=== PATIENT | male | born 1945 | race Caucasian/White ===

== ENCOUNTER 2020-07-07 16:14 | Outpatient (REF) | payer MEDICARE, OTHER, SELFPAY ==
[2020-07-07 18:34] LABS: Estimated Average Glucose 171 mg/dL; Hemoglobin A1c % 7.6 %
[2020-07-07 18:46] LABS: Amphetamine Screen Urine Not Detected (Not Detect); Barbiturates, Urine Not Detected (Not Detect); Benzodiazepines Screen Urine Not Detected (Not Detect); Cannabinoid Screen Urine Not Detected (Not Detect); Opiate Screen Urine POSITIVE (Not Detect); Phencyclidine Screen Urine Not Detected (Not Detect)
[2020-07-07 18:48] LABS: Cocaine Screen Urine Not Detected (Not Detect)
[2020-07-07 18:49] LABS: Alanine Aminotransferase 29 U/L (0-40); Albumin Level 4.2 g/dL (3.5-5.0); Alkaline Phosphatase 79 U/L (39-117); Anion Gap 15 (12-20); Aspartate Amino Transferase 27 U/L (5-37); Bilirubin Total 0.3 mg/dL (0.0-1.0); Blood Urea Nitrogen 10 mg/dL (9-16); Calcium 8.7 mg/dL (8.4-10.2); Carbon Dioxide 36 mmol/L (22-29); Chloride 92 mmol/L (96-108); Cholesterol 197 mg/dL; Estimated Glomerular Filt Rate > 60; Glucose Random 122 mg/dL (60-115); HDL Cholesterol 36 mg/dL; LDL Cholesterol Calculated 115 mg/dl; Potassium 3.4 mmol/l (3.3-5.1); Sodium 140 mmol/L (135-145); Total Protein 7.2 g/dL (6.5-8.0); Triglycerides 231 mg/dL
== END 2020-07-07 16:15 | disposition home or self-care (01) ==
LOC: HO.LAB 16:14
PROVIDERS: PCP Family Medicine; Visit Provider Family Medicine
DX: E11.9 Type 2 diabetes mellitus without complications (principal); G89.4 Chronic pain syndrome; E78.5 Hyperlipidemia, unspecified
CPT/HCPCS: 80053; 80061; 80307; 83036

== ENCOUNTER 2020-10-16 07:28 | Inpatient (IN) | payer OTHER, MEDICARE, SELFPAY ==
[2020-10-16] VITALS (10 sets, daily range): BP systolic 104–170; BP diastolic 66–95; PULSE 86–121; RESP 17–24; TEMP 36.8–36.9; O2SAT 93–96; BMI 37.0
--- NOTE | ~2020-10-16 | XR_ITS ---
EXAMINATION: XR CHEST CLINICAL INFORMATION: Hypokalemia COMPARISON: None TECHNIQUE: Frontal view of the chest was obtained. FINDINGS: Cardiac leads overlie the chest. The lungs are well expanded. No consolidation, edema, or effusion. No pneumothorax. The cardiomediastinal silhouette is within normal limits. XR/XR chest 1V IMPRESSION: No acute pulmonary finding.
--- NOTE | 2020-10-16 07:44 | ED_ITS ---
HPI - General Adult General Chief complaint: General Medical <Patrick Miller MD - Last Filed: 10/16/20 12:49> Stated complaint: ANX, S/P TAKING NARCAN D/T POSS TOOK TOO MANY OXY <Patrick Miller MD - Last Filed: 10/16/20 12:49> Time Seen by Provider: 10/16/20 07:43 <Patrick Miller MD - Last Filed: 10/16/20 12:49> Source: EMS <Patrick Miller MD - Last Filed: 10/16/20 12:49> Mode of arrival: EMS <Patrick Miller MD - Last Filed: 10/16/20 12:49> Limitations: no limitations <Patrick Miller MD - Last Filed: 10/16/20 12:49> History of Present Illness HPI narrative: 75-year-old male with chronic pain syndrome, patient use oxycodone 40 mg twice daily, patient took 80 mg of oxycodone this morning did not feel well patient administered himself Narcan nasally then patient started feel weird, patient is complaining of not feeling well no no specific symptoms at this poi nt, patient repeatedly say give me something to calm me down and I will get my head straight please help me, please help me,... , Patient overall is vague historian. <Patrick Miller MD - Last Filed: 10/16/20 12:49> Related Data Home medications: Home Medications Medication Instructions Recorded Confirmed apixaban [Eliquis] 5 mg PO BID 10/16/20 10/16/20 furosemide 80 mg PO BID 10/16/20 10/16/20 metolazone 5 mg PO SA@1000 10/16/20 10/16/20 oxycodone 15 mg PO Q6H PRN 10/16/20 10/16/20 oxycodone [OxyContin] 80 mg PO Q12H 10/16/20 10/16/20 potassium chloride 10 meq PO BID 10/16/20 10/16/20 tamsulosin 0.4 mg PO DAILY 10/16/20 10/16/20 <Patrick Miller MD - Last Filed: 10/16/20 12:49> Allergies/adverse reactions: Allergies Allergy/AdvReac Type Severity Reaction Status Date / Time No Known Allergies Allergy Verified 10/16/20 07:43 <Patrick Miller MD - Last Filed: 10/16/20 12:49> Review of Systems Review of Systems: All other systems are reviewed and are negative Constitutional: Reports as per HPI and Reports no additional constitutional complaints Eyes: Reports as per HPI and Reports no additional eye complaints Reports system reviewed and no additional complaints, except as documented Cardiovascular: Reports as per HPI and Reports no additional cardiovascular complaints Respiratory: Reports as per HPI and Reports no additional respiratory complaints Gastrointestinal: Reports as per HPI and Reports no additional gastrointestinal complaints Genitourinary: Reports no additional female genitourinary complaints Musculoskeletal: Reports no additional musculoskeletal complaints Skin/Breast: Reports system reviewed and no additional complaints, except as docu Psychiatric: Reports no additional psychiatric complaints Endocrine: Reports no additional endocrine complaints Hematologic/Lymphatic: Reports no additional hematologic/lymphatic complaints Allergic/Immunologic: Reports no additional allergic/immunologic complaints Reports system reviewed and no additional complaints, except as documented and Reports Abnormal speech present <Patrick Miller MD - Last Filed: 10/16/20 12:49> [facility] Past Medical History Medical History: Medical History Chronic back pain <Patrick Miller MD - Last Filed: 10/16/20 12:49> Social History Social History: Social History Alcohol intake: unknown Smoking Status: Unknown if ever smoked Use of substances other than those prescribed or required for medical reasons: Unknown Advance Directives: No Advance Directives Information Provided: No <Patrick Miller MD - Last Filed: 10/16/20 12:49> Physical Exam Vital Signs: Vital Signs: Last Vital Signs Temp 98.3 F 10/16/20 20:51 Pulse 98 10/17/20 00:38 Resp 15 10/17/20 00:38 BP 147/80 H 10/17/20 00:38 Pulse Ox 92 10/17/20 00:38 Body Mass Index 37.0 Vital signs have been reviewed as normal and appeared to be correct. Blood pressure in the high round. Heart rate in the high range. Respiration rate normal. Temperature normal. Oxygen saturation normal. <Patrick Miller MD - Last Filed: 10/16/20 12:49> Vital Signs: Last Vital Signs Temp 98.3 F 10/16/20 20:51 Pulse 98 10/17/20 00:38 Resp 15 10/17/20 00:38 BP 147/80 H 10/17/20 00:38 Pulse Ox 92 10/17/20 00:38 Body Mass Index 37.0 <Emilie Ramos MD - Last Filed: 10/17/20 06:13> Appearance: Alert. Oriented X3. No acute distress. Head: Normal external exam. Normocephalic. Atraumatic. No Christopher signs noted. No raccoon eyes noted Eyes: PERRLA. EOMI. Conjunctiva and sclera normal. Eyelids normal. ENT: EAC normal. TM's Normal. Pharynx normal. Uvula midline. Moist mucous membranes. No trismus noted. No drooling noted. No muffled voice noted. Neck: Normal inspection. Neck supple. FROM. No adenopathy. Thyroid Normal. No meningeal signs. No neck mass noted. CVS: Normal heart rate and rhythm. Heart sound normal. No murmurs noted. Pulses normal throughout. Respiratory: No respiratory distress. Painless inspiration. Breath sounds normal. No wheezes/rales/rhonchi noted. Chest nontender. No accessory muscle usage noted or decreased air movement noted. Abdomen: Soft and nontender. Bowel sounds normal in all 4 quadrants. No distention noted. No organomegaly noted. No visible injury noted. Back: No CVA tenderness. Full range of motion noted. Skin: Skin warm and dry. Normal skin color. Normal skin turgor. No rashes/lesions/lacerations noted. Extremities: No lower extremity edema. Extremities exhibit normal range of motion. Extremities nontender. Neuro: Oriented X 3. No motor deficit. No sensory deficit. Reflexes normal. <Patrick Miller MD - Last Filed: 10/16/20 12:49> Course Course Course Narrative: Assessment and plan. Patient initially came in after taking his normal oxycodone than give himself a Narcan patient did not feel good, due to patient's vague historian labs were randomly sent and showed hypo natremia and hypokalemia further history from the patient patient is taking total of 120 mg of Lasix daily which could contribute to patient's finding today. Will admit the patient for electrolyte management. Patient is orthostatic will volume repletion. The case discussed with Dr. Stevens from Nephrology who recommended to do a water restriction to 1.5 L a day and a serial sodium check. <Patrick Miller MD - Last Filed: 10/16/20 12:49> Medical Decision Making Lab Data Lab results reviewed: Yes I reviewed the patient's lab results. <Patrick Miller MD - Last Filed: 10/16/20 12:49> Result diagrams: : 10/16/20 08:41 10/16/20 22:03 <Patrick Miller MD - Last Filed: 10/16/20 12:49> Labs: Lab Results 10/16/20 10/16/20 10/16/20 Range/Units 08:41 08:41 08:41 WBC 12.4 H (4.8-10.8) X10*3/uL RBC 4.44 L (4.60-5.80) X10*6/uL Hgb 12.3 L (14.0-18.0) g/dl Hct 35.2 L (42-52) % MCV 79.3 L (80-98) fL MCH 27.7 (27.0-33.0) pg MCHC 34.9 (31.0-36.0) g/dl RDW 14.3 (11.0-16.0) % Plt Count 239 (160-400) X10*3/uL MPV 9.8 (9.4-12.4) fL Immature Gran % (Auto) 0.7 H (0.0-0.4) % Neut % (Auto) 87.1 H (45-73) % Lymph % (Auto) 4.2 L (20-40) % [place] % (Auto) 7.7 (2-11) % Eos % (Auto) 0.1 (0-4) % Baso % (Auto) 0.2 (0-2) % Lymph # (Auto) 0.5 L (1.2-4.9) X10*3/uL [place] # (Auto) 1.0 (0.1-1.2) X10*3/uL Eos # (Auto) 0.0 (0.0-0.4) X10*3/uL Baso # (Auto) 0.0 (0.0-0.2) X10*3/uL Abs Immat Gran (auto) 0.09 H (0.00-0.03) X10*3/uL Absolute Neuts (auto) 10.8 H (2.0-8.3) X10*3/uL Absolute Nucleated RBC 0.000 (0.0-0.012) X10*3/uL Nucleated RBC % (auto) 0.0 (0.0-0.2) /100WBC Smear Tech's Comments VERIFIED Sodium 118 L* (135-145) mmol/L Potassium 2.3 L* (3.3-5.1) mmol/L Chloride 62 L D (96-108) mmol/L Carbon Dioxide 37 H (22-29) mmol/L Anion Gap 21 H (12-20) BUN 13 (9-16) mg/dL Creatinine 0.90 (0.5-1.4) mg/dL Estim Creat Clear Calc 99.4 Estimated GFR > 60 Random Glucose 252 H D (60-115) mg/dL Calcium 7.8 L D (8.4-10.2) mg/dL Phosphorus 1.9 L (2.7-4.5) mg/dL Magnesium 1.5 L (1.6-2.6) mg/dL Total Bilirubin 0.7 (0.0-1.0) mg/dL Direct Bilirubin 0.3 (0.0-0.5) mg/dL AST 44 H D (5-37) U/L ALT 40 (0-40) U/L Alkaline Phosphatase 106 D (39-117) U/L Troponin I High Sens 9.4 (<3.5-35.0) ng/L Total Protein 7.1 (6.5-8.0) g/dL Albumin 4.1 (3.5-5.0) g/dL Lipase 426 H (8-78) U/L Urine Color Urine Appearance Urine pH (5.0-8.0) Ur Specific [place] (1.005-1.025) Urine Protein (NEG-TRACE) MG/DL Urine Glucose (UA) (NEG) MG/DL Urine Ketones (NEG) MG/DL Urine Blood (NEG) Urine Nitrite (NEG) Ur Leukocyte Esterase (NEG) Urine RBC (0) /HPF Urine WBC (0-4) /HPF Ur Squamous Epith Cells /LPF Urine Bacteria /LPF Urine Osmolality (373-1093) mosm/kg Ur Random Sodium mmol/L Ur Random Potassium mmol/L Urine Opiates Screen (Not Detect) Ur Barbiturates Screen (Not Detect) Ur Phencyclidine Scrn (Not Detect) Ur Amphetamines Screen (Not Detect) U Benzodiazepines Scrn (Not Detect) Urine Cocaine Screen (Not Detect) U Marijuana (THC) Screen (Not Detect) COVID-19 (CODY) (Negative) COVID-19 Clin Com 10/16/20 10/16/20 10/16/20 Range/Units 11:39 11:59 12:56 WBC (4.8-10.8) X10*3/uL RBC (4.60-5.80) X10*6/uL Hgb (14.0-18.0) g/dl Hct (42-52) % MCV (80-98) fL MCH (27.0-33.0) pg MCHC (31.0-36.0) g/dl RDW (11.0-16.0) % Plt Count (160-400) X10*3/uL MPV (9.4-12.4) fL Immature Gran % (Auto) (0.0-0.4) % Neut % (Auto) (45-73) % Lymph % (Auto) (20-40) % [place] % (Auto) (2-11) % Eos % (Auto) (0-4) % Baso % (Auto) (0-2) % Lymph # (Auto) (1.2-4.9) X10*3/uL [place] # (Auto) (0.1-1.2) X10*3/uL Eos # (Auto) (0.0-0.4) X10*3/uL Baso # (Auto) (0.0-0.2) X10*3/uL Abs Immat Gran (auto) (0.00-0.03) X10*3/uL Absolute Neuts (auto) (2.0-8.3) X10*3/uL Absolute Nucleated RBC (0.0-0.012) X10*3/uL Nucleated RBC % (auto) (0.0-0.2) /100WBC Smear Tech's Comments Sodium 120 L* (135-145) mmol/L Potassium 2.4 L* (3.3-5.1) mmol/L Chloride 65 L (96-108) mmol/L Carbon Dioxide 35 H (22-29) mmol/L Anion Gap 22 H (12-20) BUN 12 (9-16) mg/dL Creatinine 0.84 (0.5-1.4) mg/dL Estim Creat Clear Calc 106.5 Estimated GFR > 60 Random Glucose 230 H (60-115) mg/dL Calcium 7.8 L (8.4-10.2) mg/dL Phosphorus (2.7-4.5) mg/dL Magnesium (1.6-2.6) mg/dL Total Bilirubin (0.0-1.0) mg/dL Direct Bilirubin (0.0-0.5) mg/dL AST (5-37) U/L ALT (0-40) U/L Alkaline Phosphatase (39-117) U/L Troponin I High Sens (<3.5-35.0) ng/L Total Protein (6.5-8.0) g/dL Albumin (3.5-5.0) g/dL Lipase (8-78) U/L Urine Color YELLOW Urine Appearance CLEAR Urine pH 6.5 (5.0-8.0) Ur Specific [place] 1.015 (1.005-1.025) Urine Protein NEG (NEG-TRACE) MG/DL Urine Glucose (UA) 100 H (NEG) MG/DL Urine Ketones NEG (NEG) MG/DL Urine Blood TRACE (NEG) Urine Nitrite NEG (NEG) Ur Leukocyte Esterase NEG (NEG) Urine RBC 0-2 (0) /HPF Urine WBC 0-2 (0-4) /HPF Ur Squamous Epith Cells TRACE /LPF Urine Bacteria NONE /LPF Urine Osmolality (373-1093) mosm/kg Ur Random Sodium mmol/L Ur Random Potassium mmol/L Urine Opiates Screen (Not Detect) Ur Barbiturates Screen (Not Detect) Ur Phencyclidine Scrn (Not Detect) Ur Amphetamines Screen (Not Detect) U Benzodiazepines Scrn (Not Detect) Urine Cocaine Screen (Not Detect) U Marijuana (THC) Screen (Not Detect) COVID-19 (CODY) Negative (Negative) COVID-19 Clin Com See Note 10/16/20 10/16/20 10/16/20 Range/Units 12:56 12:56 12:56 WBC (4.8-10.8) X10*3/uL RBC (4.60-5.80) X10*6/uL Hgb (14.0-18.0) g/dl Hct (42-52) % MCV (80-98) fL MCH (27.0-33.0) pg MCHC (31.0-36.0) g/dl RDW (11.0-16.0) % Plt Count (160-400) X10*3/uL MPV (9.4-12.4) fL Immature Gran % (Auto) (0.0-0.4) % Neut % (Auto) (45-73) % Lymph % (Auto) (20-40) % [place] % (Auto) (2-11) % Eos % (Auto) (0-4) % Baso % (Auto) (0-2) % Lymph # (Auto) (1.2-4.9) X10*3/uL [place] # (Auto) (0.1-1.2) X10*3/uL Eos # (Auto) (0.0-0.4) X10*3/uL Baso # (Auto) (0.0-0.2) X10*3/uL Abs Immat Gran (auto) (0.00-0.03) X10*3/uL Absolute Neuts (auto) (2.0-8.3) X10*3/uL Absolute Nucleated RBC (0.0-0.012) X10*3/uL Nucleated RBC % (auto) (0.0-0.2) /100WBC Smear Tech's Comments Sodium (135-145) mmol/L Potassium (3.3-5.1) mmol/L Chloride (96-108) mmol/L Carbon Dioxide (22-29) mmol/L Anion Gap (12-20) BUN (9-16) mg/dL Creatinine (0.5-1.4) mg/dL Estim Creat Clear Calc Estimated GFR Random Glucose (60-115) mg/dL Calcium (8.4-10.2) mg/dL Phosphorus (2.7-4.5) mg/dL Magnesium (1.6-2.6) mg/dL Total Bilirubin (0.0-1.0) mg/dL Direct Bilirubin (0.0-0.5) mg/dL AST (5-37) U/L ALT (0-40) U/L Alkaline Phosphatase (39-117) U/L Troponin I High Sens (<3.5-35.0) ng/L Total Protein (6.5-8.0) g/dL Albumin (3.5-5.0) g/dL Lipase (8-78) U/L Urine Color Urine Appearance Urine pH (5.0-8.0) Ur Specific [place] (1.005-1.025) Urine Protein (NEG-TRACE) MG/DL Urine Glucose (UA) (NEG) MG/DL Urine Ketones (NEG) MG/DL Urine Blood (NEG) Urine Nitrite (NEG) Ur Leukocyte Esterase (NEG) Urine RBC (0) /HPF Urine WBC (0-4) /HPF Ur Squamous Epith Cells /LPF Urine Bacteria /LPF Urine Osmolality 434 (373-1093) mosm/kg Ur Random Sodium 29.0 mmol/L Ur Random Potassium 49.1 mmol/L Urine Opiates Screen POSITIVE H (Not Detect) Ur Barbiturates Screen Not Detected (Not Detect) Ur Phencyclidine Scrn Not Detected (Not Detect) Ur Amphetamines Screen Not Detected (Not Detect) U Benzodiazepines Scrn Not Detected (Not Detect) Urine Cocaine Screen Not Detected (Not Detect) U Marijuana (THC) Screen Not Detected (Not Detect) COVID-19 (CODY) (Negative) COVID-19 Clin Com 10/16/20 Range/Units 12:56 WBC (4.8-10.8) X10*3/uL RBC (4.60-5.80) X10*6/uL Hgb (14.0-18.0) g/dl Hct (42-52) % MCV (80-98) fL MCH (27.0-33.0) pg MCHC (31.0-36.0) g/dl RDW (11.0-16.0) % Plt Count (160-400) X10*3/uL MPV (9.4-12.4) fL Immature Gran % (Auto) (0.0-0.4) % Neut % (Auto) (45-73) % Lymph % (Auto) (20-40) % [place] % (Auto) (2-11) % Eos % (Auto) (0-4) % Baso % (Auto) (0-2) % Lymph # (Auto) (1.2-4.9) X10*3/uL [place] # (Auto) (0.1-1.2) X10*3/uL Eos # (Auto) (0.0-0.4) X10*3/uL Baso # (Auto) (0.0-0.2) X10*3/uL Abs Immat Gran (auto) (0.00-0.03) X10*3/uL Absolute Neuts (auto) (2.0-8.3) X10*3/uL Absolute Nucleated RBC (0.0-0.012) X10*3/uL Nucleated RBC % (auto) (0.0-0.2) /100WBC Smear Tech's Comments Sodium (135-145) mmol/L Potassium (3.3-5.1) mmol/L Chloride (96-108) mmol/L Carbon Dioxide (22-29) mmol/L Anion Gap (12-20) BUN (9-16) mg/dL Creatinine (0.5-1.4) mg/dL Estim Creat Clear Calc Estimated GFR Random Glucose (60-115) mg/dL Calcium (8.4-10.2) mg/dL Phosphorus (2.7-4.5) mg/dL Magnesium (1.6-2.6) mg/dL Total Bilirubin (0.0-1.0) mg/dL Direct Bilirubin (0.0-0.5) mg/dL AST (5-37) U/L ALT (0-40) U/L Alkaline Phosphatase (39-117) U/L Troponin I High Sens (<3.5-35.0) ng/L Total Protein (6.5-8.0) g/dL Albumin (3.5-5.0) g/dL Lipase (8-78) U/L Urine Color Cancelled Urine Appearance Cancelled Urine pH Cancelled (5.0-8.0) Ur Specific [place] Cancelled (1.005-1.025) Urine Protein Cancelled (NEG-TRACE) MG/DL Urine Glucose (UA) Cancelled (NEG) MG/DL Urine Ketones Cancelled (NEG) MG/DL Urine Blood Cancelled (NEG) Urine Nitrite Cancelled (NEG) Ur Leukocyte Esterase Cancelled (NEG) Urine RBC (0) /HPF Urine WBC (0-4) /HPF Ur Squamous Epith Cells /LPF Urine Bacteria /LPF Urine Osmolality (373-1093) mosm/kg Ur Random Sodium mmol/L Ur Random Potassium mmol/L Urine Opiates Screen (Not Detect) Ur Barbiturates Screen (Not Detect) Ur Phencyclidine Scrn (Not Detect) Ur Amphetamines Screen (Not Detect) U Benzodiazepines Scrn (Not Detect) Urine Cocaine Screen (Not Detect) U Marijuana (THC) Screen (Not Detect) COVID-19 (CODY) (Negative) COVID-19 Clin Com <Patrick Miller MD - Last Filed: 10/16/20 12:49> Lab Results 10/16/20 10/16/20 10/16/20 Range/Units 08:41 08:41 08:41 WBC 12.4 H (4.8-10.8) X10*3/uL RBC 4.44 L (4.60-5.80) X10*6/uL Hgb 12.3 L (14.0-18.0) g/dl Hct 35.2 L (42-52) % MCV 79.3 L (80-98) fL MCH 27.7 (27.0-33.0) pg MCHC 34.9 (31.0-36.0) g/dl RDW 14.3 (11.0-16.0) % Plt Count 239 (160-400) X10*3/uL MPV 9.8 (9.4-12.4) fL Immature Gran % (Auto) 0.7 H (0.0-0.4) % Neut % (Auto) 87.1 H (45-73) % Lymph % (Auto) 4.2 L (20-40) % [place] % (Auto) 7.7 (2-11) % Eos % (Auto) 0.1 (0-4) % Baso % (Auto) 0.2 (0-2) % Lymph # (Auto) 0.5 L (1.2-4.9) X10*3/uL [place] # (Auto) 1.0 (0.1-1.2) X10*3/uL Eos # (Auto) 0.0 (0.0-0.4) X10*3/uL Baso # (Auto) 0.0 (0.0-0.2) X10*3/uL Abs Immat Gran (auto) 0.09 H (0.00-0.03) X10*3/uL Absolute Neuts (auto) 10.8 H (2.0-8.3) X10*3/uL Absolute Nucleated RBC 0.000 (0.0-0.012) X10*3/uL Nucleated RBC % (auto) 0.0 (0.0-0.2) /100WBC Smear Tech's Comments VERIFIED Sodium 118 L* (135-145) mmol/L Potassium 2.3 L* (3.3-5.1) mmol/L Chloride 62 L D (96-108) mmol/L Carbon Dioxide 37 H (22-29) mmol/L Anion Gap 21 H (12-20) BUN 13 (9-16) mg/dL Creatinine 0.90 (0.5-1.4) mg/dL Estim Creat Clear Calc 99.4 Estimated GFR > 60 Random Glucose 252 H D (60-115) mg/dL Calcium 7.8 L D (8.4-10.2) mg/dL Phosphorus 1.9 L (2.7-4.5) mg/dL Magnesium 1.5 L (1.6-2.6) mg/dL Total Bilirubin 0.7 (0.0-1.0) mg/dL Direct Bilirubin 0.3 (0.0-0.5) mg/dL AST 44 H D (5-37) U/L ALT 40 (0-40) U/L Alkaline Phosphatase 106 D (39-117) U/L Troponin I High Sens 9.4 (<3.5-35.0) ng/L Total Protein 7.1 (6.5-8.0) g/dL Albumin 4.1 (3.5-5.0) g/dL Lipase 426 H (8-78) U/L Urine Color Urine Appearance Urine pH (5.0-8.0) Ur Specific [place] (1.005-1.025) Urine Protein (NEG-TRACE) MG/DL Urine Glucose (UA) (NEG) MG/DL Urine Ketones (NEG) MG/DL Urine Blood (NEG) Urine Nitrite (NEG) Ur Leukocyte Esterase (NEG) Urine RBC (0) /HPF Urine WBC (0-4) /HPF Ur Squamous Epith Cells /LPF Urine Bacteria /LPF Urine Osmolality (373-1093) mosm/kg Ur Random Sodium mmol/L Ur Random Potassium mmol/L Urine Opiates Screen (Not Detect) Ur Barbiturates Screen (Not Detect) Ur Phencyclidine Scrn (Not Detect) Ur Amphetamines Screen (Not Detect) U Benzodiazepines Scrn (Not Detect) Urine Cocaine Screen (Not Detect) U Marijuana (THC) Screen (Not Detect) COVID-19 (CODY) (Negative) COVID-19 Clin Com 10/16/20 10/16/20 10/16/20 Range/Units 11:39 11:59 12:56 WBC (4.8-10.8) X10*3/uL RBC (4.60-5.80) X10*6/uL Hgb (14.0-18.0) g/dl Hct (42-52) % MCV (80-98) fL MCH (27.0-33.0) pg MCHC (31.0-36.0) g/dl RDW (11.0-16.0) % Plt Count (160-400) X10*3/uL MPV (9.4-12.4) fL Immature Gran % (Auto) (0.0-0.4) % Neut % (Auto) (45-73) % Lymph % (Auto) (20-40) % [place] % (Auto) (2-11) % Eos % (Auto) (0-4) % Baso % (Auto) (0-2) % Lymph # (Auto) (1.2-4.9) X10*3/uL [place] # (Auto) (0.1-1.2) X10*3/uL Eos # (Auto) (0.0-0.4) X10*3/uL Baso # (Auto) (0.0-0.2) X10*3/uL Abs Immat Gran (auto) (0.00-0.03) X10*3/uL Absolute Neuts (auto) (2.0-8.3) X10*3/uL Absolute Nucleated RBC (0.0-0.012) X10*3/uL Nucleated RBC % (auto) (0.0-0.2) /100WBC Smear Tech's Comments Sodium 120 L* (135-145) mmol/L Potassium 2.4 L* (3.3-5.1) mmol/L Chloride 65 L (96-108) mmol/L Carbon Dioxide 35 H (22-29) mmol/L Anion Gap 22 H (12-20) BUN 12 (9-16) mg/dL Creatinine 0.84 (0.5-1.4) mg/dL Estim Creat Clear Calc 106.5 Estimated GFR > 60 Random Glucose 230 H (60-115) mg/dL Calcium 7.8 L (8.4-10.2) mg/dL Phosphorus (2.7-4.5) mg/dL Magnesium (1.6-2.6) mg/dL Total Bilirubin (0.0-1.0) mg/dL Direct Bilirubin (0.0-0.5) mg/dL AST (5-37) U/L ALT (0-40) U/L Alkaline Phosphatase (39-117) U/L Troponin I High Sens (<3.5-35.0) ng/L Total Protein (6.5-8.0) g/dL Albumin (3.5-5.0) g/dL Lipase (8-78) U/L Urine Color YELLOW Urine Appearance CLEAR Urine pH 6.5 (5.0-8.0) Ur Specific [place] 1.015 (1.005-1.025) Urine Protein NEG (NEG-TRACE) MG/DL Urine Glucose (UA) 100 H (NEG) MG/DL Urine Ketones NEG (NEG) MG/DL Urine Blood TRACE (NEG) Urine Nitrite NEG (NEG) Ur Leukocyte Esterase NEG (NEG) Urine RBC 0-2 (0) /HPF Urine WBC 0-2 (0-4) /HPF Ur Squamous Epith Cells TRACE /LPF Urine Bacteria NONE /LPF Urine Osmolality (373-1093) mosm/kg Ur Random Sodium mmol/L Ur Random Potassium mmol/L Urine Opiates Screen (Not Detect) Ur Barbiturates Screen (Not Detect) Ur Phencyclidine Scrn (Not Detect) Ur Amphetamines Screen (Not Detect) U Benzodiazepines Scrn (Not Detect) Urine Cocaine Screen (Not Detect) U Marijuana (THC) Screen (Not Detect) COVID-19 (CODY) Negative (Negative) COVID-19 Clin Com See Note 10/16/20 10/16/20 10/16/20 Range/Units 12:56 12:56 12:56 WBC (4.8-10.8) X10*3/uL RBC (4.60-5.80) X10*6/uL Hgb (14.0-18.0) g/dl Hct (42-52) % MCV (80-98) fL MCH (27.0-33.0) pg MCHC (31.0-36.0) g/dl RDW (11.0-16.0) % Plt Count (160-400) X10*3/uL MPV (9.4-12.4) fL Immature Gran % (Auto) (0.0-0.4) % Neut % (Auto) (45-73) % Lymph % (Auto) (20-40) % [place] % (Auto) (2-11) % Eos % (Auto) (0-4) % Baso % (Auto) (0-2) % Lymph # (Auto) (1.2-4.9) X10*3/uL [place] # (Auto) (0.1-1.2) X10*3/uL Eos # (Auto) (0.0-0.4) X10*3/uL Baso # (Auto) (0.0-0.2) X10*3/uL Abs Immat Gran (auto) (0.00-0.03) X10*3/uL Absolute Neuts (auto) (2.0-8.3) X10*3/uL Absolute Nucleated RBC (0.0-0.012) X10*3/uL Nucleated RBC % (auto) (0.0-0.2) /100WBC Smear Tech's Comments Sodium (135-145) mmol/L Potassium (3.3-5.1) mmol/L Chloride (96-108) mmol/L Carbon Dioxide (22-29) mmol/L Anion Gap (12-20) BUN (9-16) mg/dL Creatinine (0.5-1.4) mg/dL Estim Creat Clear Calc Estimated GFR Random Glucose (60-115) mg/dL Calcium (8.4-10.2) mg/dL Phosphorus (2.7-4.5) mg/dL Magnesium (1.6-2.6) mg/dL Total Bilirubin (0.0-1.0) mg/dL Direct Bilirubin (0.0-0.5) mg/dL AST (5-37) U/L ALT (0-40) U/L Alkaline Phosphatase (39-117) U/L Troponin I High Sens (<3.5-35.0) ng/L Total Protein (6.5-8.0) g/dL Albumin (3.5-5.0) g/dL Lipase (8-78) U/L Urine Color Urine Appearance Urine pH (5.0-8.0) Ur Specific [place] (1.005-1.025) Urine Protein (NEG-TRACE) MG/DL Urine Glucose (UA) (NEG) MG/DL Urine Ketones (NEG) MG/DL Urine Blood (NEG) Urine Nitrite (NEG) Ur Leukocyte Esterase (NEG) Urine RBC (0) /HPF Urine WBC (0-4) /HPF Ur Squamous Epith Cells /LPF Urine Bacteria /LPF Urine Osmolality 434 (373-1093) mosm/kg Ur Random Sodium 29.0 mmol/L Ur Random Potassium 49.1 mmol/L Urine Opiates Screen POSITIVE H (Not Detect) Ur Barbiturates Screen Not Detected (Not Detect) Ur Phencyclidine Scrn Not Detected (Not Detect) Ur Amphetamines Screen Not Detected (Not Detect) U Benzodiazepines Scrn Not Detected (Not Detect) Urine Cocaine Screen Not Detected (Not Detect) U Marijuana (THC) Screen Not Detected (Not Detect) COVID-19 (CODY) (Negative) COVID-19 Clin Com 10/16/20 Range/Units 12:56 WBC (4.8-10.8) X10*3/uL RBC (4.60-5.80) X10*6/uL Hgb (14.0-18.0) g/dl Hct (42-52) % MCV (80-98) fL MCH (27.0-33.0) pg MCHC (31.0-36.0) g/dl RDW (11.0-16.0) % Plt Count (160-400) X10*3/uL MPV (9.4-12.4) fL Immature Gran % (Auto) (0.0-0.4) % Neut % (Auto) (45-73) % Lymph % (Auto) (20-40) % [place] % (Auto) (2-11) % Eos % (Auto) (0-4) % Baso % (Auto) (0-2) % Lymph # (Auto) (1.2-4.9) X10*3/uL [place] # (Auto) (0.1-1.2) X10*3/uL Eos # (Auto) (0.0-0.4) X10*3/uL Baso # (Auto) (0.0-0.2) X10*3/uL Abs Immat Gran (auto) (0.00-0.03) X10*3/uL Absolute Neuts (auto) (2.0-8.3) X10*3/uL Absolute Nucleated RBC (0.0-0.012) X10*3/uL Nucleated RBC % (auto) (0.0-0.2) /100WBC Smear Tech's Comments Sodium (135-145) mmol/L Potassium (3.3-5.1) mmol/L Chloride (96-108) mmol/L Carbon Dioxide (22-29) mmol/L Anion Gap (12-20) BUN (9-16) mg/dL Creatinine (0.5-1.4) mg/dL Estim Creat Clear Calc Estimated GFR Random Glucose (60-115) mg/dL Calcium (8.4-10.2) mg/dL Phosphorus (2.7-4.5) mg/dL Magnesium (1.6-2.6) mg/dL Total Bilirubin (0.0-1.0) mg/dL Direct Bilirubin (0.0-0.5) mg/dL AST (5-37) U/L ALT (0-40) U/L Alkaline Phosphatase (39-117) U/L Troponin I High Sens (<3.5-35.0) ng/L Total Protein (6.5-8.0) g/dL Albumin (3.5-5.0) g/dL Lipase (8-78) U/L Urine Color Cancelled Urine Appearance Cancelled Urine pH Cancelled (5.0-8.0) Ur Specific [place] Cancelled (1.005-1.025) Urine Protein Cancelled (NEG-TRACE) MG/DL Urine Glucose (UA) Cancelled (NEG) MG/DL Urine Ketones Cancelled (NEG) MG/DL Urine Blood Cancelled (NEG) Urine Nitrite Cancelled (NEG) Ur Leukocyte Esterase Cancelled (NEG) Urine RBC (0) /HPF Urine WBC (0-4) /HPF Ur Squamous Epith Cells /LPF Urine Bacteria /LPF Urine Osmolality (373-1093) mosm/kg Ur Random Sodium mmol/L Ur Random Potassium mmol/L Urine Opiates Screen (Not Detect) Ur Barbiturates Screen (Not Detect) Ur Phencyclidine Scrn (Not Detect) Ur Amphetamines Screen (Not Detect) U Benzodiazepines Scrn (Not Detect) Urine Cocaine Screen (Not Detect) U Marijuana (THC) Screen (Not Detect) COVID-19 (CODY) (Negative) COVID-19 Clin Com <Emilie Ramos MD - Last Filed: 10/17/20 06:13> ECG Data Interpretation: Atrial fibrillation at 93 beats per minute, otherwise unremarkable intervals multiple artifact, rule out T-wave ischemic changes. <Patrick Miller MD - Last Filed: 10/16/20 12:49> Discharge Plan Discharge Clinical Impression: Hyponatremia, Hypokalemia <Partick Miller MD - Last Filed: 10/16/20 12:49> Patient Disposition: Admitted As Inpatient <Patrick Miller MD - Last Filed: 10/16/20 12:49>
[2020-10-16] MEDS: LORazepam 1 MG TABLET PO (07:47)
[2020-10-16 08:49] LABS: Basophils Percent Auto 0.2 % (0-2); Eosinophils Percent Auto 0.1 % (0-4); Hematocrit 35.2 % (42-52); Hemoglobin 12.3 g/dl (14.0-18.0); Imm Gran Abs Auto 0.09 X10*3/uL (0.00-0.03); Imm Gran Pct Auto 0.7 % (0.0-0.4); Lymphocytes Absolute Auto 0.5 X10*3/uL (1.2-4.9); Lymphocytes Percent Auto 4.2 % (20-40); MANUAL DIFF FLAG SCAN; Mean Corpuscular HGB Conc 34.9 g/dl (31.0-36.0); Mean Corpuscular Hemoglobin 27.7 pg (27.0-33.0); Mean Corpuscular Volume 79.3 fL (80-98); Mean Platelet Volume 9.8 fL (9.4-12.4); Monocytes Percent Auto 7.7 % (2-11); Neutrophils Absolute Auto 10.8 X10*3/uL (2.0-8.3); Neutrophils Percent Auto 87.1 % (45-73); Platelet Count 239 X10*3/uL (160-400); Red Blood Count 4.44 X10*6/uL (4.60-5.80); Red Cell Distribution Width 14.3 % (11.0-16.0); SCAN SMEAR FLAG 1; White Blood Count 12.4 X10*3/uL (4.8-10.8)
[2020-10-16 09:27] LABS: SLIDE REVIEW VERIFIED
[2020-10-16 09:37] LABS: Alanine Aminotransferase 40 U/L (0-40); Albumin Level 4.1 g/dL (3.5-5.0); Alkaline Phosphatase 106 U/L (39-117); Anion Gap 21 (12-20); Aspartate Amino Transferase 44 U/L (5-37); Bilirubin Direct 0.3 mg/dL (0.0-0.5); Bilirubin Total 0.7 mg/dL (0.0-1.0); Blood Urea Nitrogen 13 mg/dL (9-16); Calcium 7.8 mg/dL (8.4-10.2); Carbon Dioxide 37 mmol/L (22-29); Chloride 62 mmol/L (96-108); Creatinine Clr Calc Pharmacy 99.4; Estimated Glomerular Filt Rate > 60; Glucose Random 252 mg/dL (60-115); Lipase 426 U/L (8-78); Potassium 2.3 mmol/L (3.3-5.1); Sodium 118 mmol/L (135-145); Total Protein 7.1 g/dL (6.5-8.0)
[2020-10-16] MEDS: 0.9 % Sodium Chloride 1,000 ML 999 ML IVCONT (10:26)
[2020-10-16] MEDS: KCl 10 mEq in 5% Dex/0.45% Sod 10 MEQ/1,000 ML IV.SOLN 42 MEQ IVCONT (10:33)
[2020-10-16 10:39] LABS: Magnesium 1.5 mg/dL (1.6-2.6); Phosphorus 1.9 mg/dL (2.7-4.5)
[2020-10-16 10:56] LABS: Troponin-I High Sensitivity 9.4 ng/L (<3.5-35.0)
--- NOTE | 2020-10-16 11:34 | PM.IMHP ---
History of Present Illness Date of Service: 10/16/20 <Whitney Menezes NP - Last Filed: 10/17/20 10:06> Chief Complaint: Dizziness <Whitney Menezes NP - Last Filed: 10/17/20 10:06> 75 year old man presenting with dizziness and feeling foggy . He reported that he takes oxycontin and oxycodone due to chronic back pain. He takes 80 mg of oxycontin and 4-15mg oxycodone a day. However, he stated that he splits the 80mg oxycontin and takes them every 6 hours. He stated that he took one extra 80mg oxycontin last night and feels like that may have caused his blood pressure to go down and cause his dizziness. He denied chest pain, shortness of breath, fever, chills, nausea or vomiting. His sodium was noted to be low at 118, potassium 2.3. He is on Lasix at home. <Whitney Menezes NP - Last Filed: 10/17/20 10:06> Review of Systems Review of Systems: Denies any recent fever chills or decrease in appetite respiratory denies any shortness of breath coverage production cardiovascular Dizziness gastrointestinal denies any dysphagia abdominal pain nausea vomiting or diarrhea genitourinary denies any dysuria frequency or hematuria musculoskeletal Chronic back pain neuropsych denies any weakness or seizures all other systems reviewed are negative <Whitney Menezes NP - Last Filed: 10/17/20 10:06> [facility] Medical History: Medical History (Updated 10/18/20 @ 09:09 by Sid Cardona MD) Afib CHF (congestive heart failure) Chronic back pain Hyperlipidemia Obstructive sleep apnea <Whitney Menezes NP - Last Filed: 10/17/20 10:06> Surgical History: Surgical History (Updated 10/17/20 @ 10:05 by Whitney Menezes NP) Previous back surgery <Whitney Menezes NP - Last Filed: 10/17/20 10:06> Social History: Social History Household Members: None Housing: Apartment Do you presently have visiting nurse or other home services: No Alcohol intake: unknown Smoking Status: Unknown if ever smoked Use of substances other than those prescribed or required for medical reasons: No Currently Displaying Signs/Symptoms of Drug Intoxication Withdrawal: No Have you been hit, kicked, punched, or otherwise hurt by someone within the past year? If so, by whom?: No Do you feel safe in your current relationship?: No Current Relationship Is there a partner from a previous relationship who is making you feel unsafe now?: No Are you made to feel afraid or neglected: No Advance Directives: No Advance Directives Information Provided: No Do you have thoughts of harming others: None Do you have a plan to hurt others: No Plan Recently lost weight without trying: No service: Yes Current occupational status: retired <Whitney Menezes NP - Last Filed: 10/17/20 10:06> Meds Allergies/Adverse reactions: Allergies Allergy/AdvReac Type Severity Reaction Status Date / Time No Known Allergies Allergy Verified 10/16/20 07:43 <Whitney Menezes NP - Last Filed: 10/17/20 10:06> Home medications: Home Medications Medication Instructions Recorded Confirmed Type apixaban [Eliquis] 5 mg PO BID 10/16/20 10/16/20 History furosemide 80 mg PO BID 10/16/20 10/16/20 History metolazone 5 mg PO SA@1000 10/16/20 10/16/20 History oxycodone 15 mg PO Q6H PRN 10/16/20 10/16/20 History oxycodone [OxyContin] 80 mg PO Q12H 10/16/20 10/16/20 History potassium chloride 10 meq PO BID 10/16/20 10/16/20 History tamsulosin 0.4 mg PO DAILY 10/16/20 10/16/20 History <Whitney Menezes NP - Last Filed: 10/17/20 10:06> Physical Exam Vital Signs and Narrative: Vital Signs: Last Vital Signs Pulse 121 H 10/16/20 11:13 Resp 24 H 10/16/20 07:39 BP 104/66 10/16/20 11:13 Pulse Ox 95 10/16/20 07:39 Body Mass Index 37.0 <Whitney Menezes NP - Last Filed: 10/17/20 10:06> Appearing tired, sitting up in bed head is normocephalic atraumatic eyes pupils are PERRLA sclera is anicteric mouth throat mucous membranes are intact and moist neck is supple no lymphadenopathy, no JVD noted lung sounds are clear to auscultation heart regular rate rhythm, clear S1, S2 positive bowel sounds, abdomen is soft, Obesed neuro patient is alert x3, no focal deficits <Whitney Menezes NP - Last Filed: 10/17/20 10:06> Results Labs CBC and Chem 7: : 10/17/20 06:24 10/18/20 06:16 <Whitney Menezes NP - Last Filed: 10/17/20 10:06> Labs: Laboratory Results - last 24 hr 10/16/20 10/16/20 10/16/20 08:41 08:41 08:41 MCV 79.3 L MCH 27.7 MCHC 34.9 RDW 14.3 Plt Count 239 MPV 9.8 Immature Gran % (Auto) 0.7 H Neut % (Auto) 87.1 H Lymph % (Auto) 4.2 L Thomas % (Auto) 7.7 Eos % (Auto) 0.1 Baso % (Auto) 0.2 Lymph # (Auto) 0.5 L Thomas # (Auto) 1.0 Eos # (Auto) 0.0 Baso # (Auto) 0.0 Abs Immat Gran (auto) 0.09 H Absolute Neuts (auto) 10.8 H Absolute Nucleated RBC 0.000 Nucleated RBC % (auto) 0.0 Smear Tech's Comments VERIFIED Anion Gap 21 H Estim Creat Clear Calc 99.4 Estimated GFR > 60 Random Glucose 252 H D Calcium 7.8 L D Phosphorus 1.9 L Magnesium 1.5 L Total Bilirubin 0.7 Direct Bilirubin 0.3 AST 44 H D ALT 40 Alkaline Phosphatase 106 D Troponin I High Sens 9.4 Total Protein 7.1 Albumin 4.1 Lipase 426 H <Whitney Menezes NP - Last Filed: 10/17/20 10:06> Assessment and Plan (1) Hyponatremia: Problem details: Likely hypovolemic hyponatremia Was orthostatic at presentation Lasix/Metalozone on hold Urine studies reviewed Shall give 0.9 % NaCl 100 /hr Free water restriction 1.5 L/ 24 hours Will add UREA 15 gm PO BID x 4 doses <Whitney Menezes NP - Last Filed: 10/17/20 10:06> Status: Acute <Whitney Menezes NP - Last Filed: 10/17/20 10:06> 75 year old man admitted with hyponatremia, hypokalemia, hypomagnesemia. He reported that he took one extra dose of his 80mg Oxycontin last night and felt dizzy. Hyponatremia. Possibly medication related secondary to Lasix use. Will hold Lasix, 1500ML fluid restriction. Nephrology to follow. Hypokalemia. Likely from Lasix. On Potassium supplements at home. Replete. Hypomagensemia. Likely from hypokalemia. Replete and follow. Chronic pain. Opioid dependant. Oxycontin 80mg BID, Oxycodone 15 mg QID. Will consult Joanne Mccartney for possible suboxone use for chronic pain. CHF. No overt failure. Hold Lasix due to hyponatremia. DVT prophylaxis with Eliquis. Discussed with Dr. Gardner Full code <Whitney Menezes NP - Last Filed: 10/17/20 10:06>
[2020-10-16 12:17] LABS: COVID-19 Test Negative (Negative)
--- NOTE | 2020-10-16 12:20 | ECG_ITS ---
Test Reason : GENERAL MEDICAL Blood Pressure : / mmHG Vent. Rate : 093 BPM Atrial Rate : 111 BPM P-R Int : 000 ms QRS Dur : 080 ms QT Int : 476 ms P-R-T Axes : 000 092 -05 degrees QTc Int : 591 ms Baseline artifact Possibly atrial fibrillation ST & T wave abnormality, consider anterolateral ischemia Abnormal ECG When compared with ECG of 30-JUN-2006 13:51, Rhythm change Referred By: Patrick Miller Electronically Signed By:PARISH QUINONEZ
[2020-10-16] MEDS: Potassium Chloride ER 20 MEQ TAB.ER.PRT 60 MEQ PO (12:45)
[2020-10-16] MEDS: Magnesium Sulfate/D5W 1 GM/100 ML PIGGYBACK IV (12:45)
[2020-10-16 12:47] LABS: Anion Gap 22 (12-20); Blood Urea Nitrogen 12 mg/dL (9-16); Calcium 7.8 mg/dL (8.4-10.2); Carbon Dioxide 35 mmol/L (22-29); Chloride 65 mmol/L (96-108); Creatinine Clr Calc Pharmacy 106.5; Estimated Glomerular Filt Rate > 60; Glucose Random 230 mg/dL (60-115); Potassium 2.4 mmol/L (3.3-5.1); Sodium 120 mmol/L (135-145)
--- NOTE | 2020-10-16 13:03 | PC.NURSE ---
patient sleeping, wakes to verbal stimulus, convalescent sitter afib 90s-120s, ekg performed, cxr performed, covid swab and labs drawn, iv magnesium hung per order-per pharmacy compatible with kcl running, urine obtained, vss, will continue to monitor.
[2020-10-16 13:11] LABS: Glucose Urine UA 100 MG/DL (NEG); Leukocyte Esterase Urine NEG (NEG); Nitrite Urine NEG (NEG); PH 6.5 (5.0-8.0); Specific Gravity - Urine 1.015 (1.005-1.025); Urine Blood TRACE (NEG); Urine Ketones NEG (NEG); Urine Protein NEG (NEG-TRACE)
[2020-10-16 13:12] LABS: Appearance Urine CLEAR; Color Urine YELLOW
[2020-10-16 13:19] LABS: RBC Urine 0-2 /HPF (0); Squamous Epithelial Cell Urine TRACE /LPF; WBC Urine 0-2 /HPF (0-4)
[2020-10-16 13:28] LABS: Potassium Urine Random 49.1 mmol/L
[2020-10-16 13:48] LABS: Amphetamine Screen Urine Not Detected (Not Detect); Barbiturates, Urine Not Detected (Not Detect); Benzodiazepines Screen Urine Not Detected (Not Detect); Cannabinoid Screen Urine Not Detected (Not Detect); Cocaine Screen Urine Not Detected (Not Detect); Opiate Screen Urine POSITIVE (Not Detect); Phencyclidine Screen Urine Not Detected (Not Detect)
[2020-10-16 14:37] LABS: Osmolality Urine 434 mosm/kg (373-1093)
--- NOTE | 2020-10-16 17:37 | PC.NURSE ---
patient c/o pain 04/21 lower back, pt refusing tylenol and wanting his home medication, hospitalist dr. munoz has been notified via tiger text.
[2020-10-16 17:40] LABS: Anion Gap 15 (12-20); Blood Urea Nitrogen 10 mg/dL (9-16); Calcium 7.6 mg/dL (8.4-10.2); Carbon Dioxide 41 mmol/L (22-29); Chloride 67 mmol/L (96-108); Creatinine Clr Calc Pharmacy 111.8; Estimated Glomerular Filt Rate > 60; Glucose Random 169 mg/dL (60-115); Potassium 2.4 mmol/L (3.3-5.1); Sodium 121 mmol/L (135-145)
[2020-10-16] MEDS: Potassium Chloride ER 20 MEQ TAB.ER.PRT 40 MEQ PO (18:29)
--- NOTE | 2020-10-16 18:32 | PC.NURSE ---
patient a&ox3, vitals stable, pt afib on monitor, ivf running per order, pt dinner tray given to patient, patient c/o 06/21 back pain- pt stated he wants to leave unless he gets medication to address his pain, asked patient if we could try to make him comfortable with a inpt bed will try to locate and notify provider and continue to monitor.
--- NOTE | 2020-10-16 19:10 | PC.NURSE ---
provider was called due to the patients pain meds, hosptialist called the pharmacy because his meds had been discontinued, pharmacy fixed the orders and will be bringing the medication up and put in the pixis, will notify patient that the pharmacy will be bringing it up to her.
[2020-10-16] MEDS: oxyCODONE HCl ER 40 MG TAB.ER.12H 80 MG PO (19:23)
--- NOTE | 2020-10-16 19:24 | PC.NURSE ---
patient medicated late with ok of provider due to issues with orders that pharmacy had to fix.
[2020-10-16] MEDS: Apixaban 5 MG TABLET PO (20:50)
[2020-10-16 22:47] LABS: Anion Gap 16 (12-20); Blood Urea Nitrogen 9 mg/dL (9-16); Calcium 7.6 mg/dL (8.4-10.2); Carbon Dioxide 39 mmol/L (22-29); Chloride 68 mmol/L (96-108); Creatinine Clr Calc Pharmacy 114.7; Estimated Glomerular Filt Rate > 60; Glucose Random 169 mg/dL (60-115)
[2020-10-17] VITALS (13 sets, daily range): BP systolic 127–166; BP diastolic 60–90; PULSE 76–112; RESP 15–25; TEMP 36–37.3; O2SAT 92–98
[2020-10-17] MEDS: oxyCODONE HCl Immed Release 15 MG TABLET PO ×4 (00:33→21:45)
[2020-10-17] MEDS: oxyCODONE HCl ER 40 MG TAB.ER.12H 80 MG PO ×2 (03:04→12:57)
[2020-10-17] MEDS: 0.9 % Sodium Chloride Flush 3 ML SYRINGE IVFLUSH ×4 (03:05→21:46)
--- NOTE | 2020-10-17 05:14 | PC.NURSE ---
pt asking for oxycodone more frequently than scheduled, including prn doses. pt hydrating with ice water, no nausea or voming.
--- NOTE | 2020-10-17 05:59 | PC.NURSE ---
PT REFUSED TYLENOL FOR PAIN OVERNIGHT X 2, THAT WON'T HELP.
[2020-10-17 06:35] LABS: MANUAL DIFF FLAG NO
[2020-10-17 06:44] LABS: Basophils Percent Auto 0.2 % (0-2); Eosinophils Percent Auto 0.3 % (0-4); Hematocrit 33.8 % (42-52); Hemoglobin 11.7 g/dl (14.0-18.0); Imm Gran Abs Auto 0.08 X10*3/uL (0.00-0.03); Imm Gran Pct Auto 0.7 % (0.0-0.4); Lymphocytes Absolute Auto 0.7 X10*3/uL (1.2-4.9); Lymphocytes Percent Auto 6.1 % (20-40); Mean Corpuscular HGB Conc 34.6 g/dl (31.0-36.0); Mean Corpuscular Hemoglobin 27.9 pg (27.0-33.0); Mean Corpuscular Volume 80.7 fL (80-98); Mean Platelet Volume 9.8 fL (9.4-12.4); Monocytes Absolute Auto 1.1 X10*3/uL (0.1-1.2); Monocytes Percent Auto 9.3 % (2-11); Neutrophils Percent Auto 83.4 % (45-73); Platelet Count 264 X10*3/uL (160-400); Red Blood Count 4.19 X10*6/uL (4.60-5.80); Red Cell Distribution Width 14.3 % (11.0-16.0)
[2020-10-17 07:30] LABS: Anion Gap 16 (12-20); Blood Urea Nitrogen 8 mg/dL (9-16); Calcium 7.8 mg/dL (8.4-10.2); Carbon Dioxide 36 mmol/L (22-29); Chloride 71 mmol/L (96-108); Creatinine Clr Calc Pharmacy 119.3; Estimated Glomerular Filt Rate > 60; Glucose Random 202 mg/dL (60-115); Potassium 2.7 mmol/L (3.3-5.1); Sodium 120 mmol/L (135-145)
--- NOTE | 2020-10-17 07:42 | PC.NURSE ---
PT SITTING ON A CHAIR EATING HIS BREAKFAST, REPORTS BACK PAIN 05/22, SLIGHT IMPROVEMENT AFTER THE OXYCODONE DR GARCIA CALLED TO GIVE 40MEG OF POTASSIUM EARLY, VS STABLE AT THIS TIME
[2020-10-17] MEDS: Tamsulosin HCL 0.4 MG CAPSULE PO (08:44)
[2020-10-17] MEDS: Apixaban 5 MG TABLET PO ×2 (08:44→19:34)
[2020-10-17 08:56] LABS: Magnesium 1.9 mg/dL (1.6-2.6)
[2020-10-17] MEDS: KCl 10 mEq in 5% Dex/0.45% Sod 10 MEQ/1,000 ML IV.SOLN 42 MEQ IVCONT (10:20)
--- NOTE | 2020-10-17 10:24 | PC.NURSE ---
PT IS CURRENTLY ASLEEP, RESPIRATIONS EVEN AND UNLABORED
--- NOTE | 2020-10-17 11:35 | P.CONNP_ITS ---
History of Present Illness Reason for Consult Consult date: 10/17/20 Chief Complaint Chief complaint: hyponatremia History of Present Illness Narrative: 75 year old man presenting with dizziness and feeling foggy . He takes oxycontin and oxycodone due to chronic back pain. He felt his blood pressure to go down and causing his dizziness. He denied chest pain, shortness of breath, fever, chills, nausea or vomiting. His sodium was noted to be low at 118, potassium 2.3. He is on Lasix and Metalozone at home. Nephrology has been consulted to assist in his clinical care during his current hospital stay. Review of Systems Review of Systems Yes all other systems are reviewed and are negative PMFSH Past Medical History Medical History (Updated 10/17/20 @ 11:42 by Endy Stevens MD) Afib CHF (congestive heart failure) Chronic back pain Hyperlipidemia Obstructive sleep apnea Surgical History Surgical History (Updated 10/17/20 @ 10:05 by Whitney Menezes NP) Previous back surgery Social History Social History Alcohol intake: unknown Smoking Status: Unknown if ever smoked Use of substances other than those prescribed or required for medical reasons: Unknown Advance Directives: No Advance Directives Information Provided: No Meds Allergies Allergy/AdvReac Type Severity Reaction Status Date / Time No Known Allergies Allergy Verified 10/16/20 07:43 Home Medications Medication Instructions Recorded Confirmed Type apixaban [Eliquis] 5 mg PO BID 10/16/20 10/16/20 History furosemide 80 mg PO BID 10/16/20 10/16/20 History metolazone 5 mg PO SA@1000 10/16/20 10/16/20 History oxycodone 15 mg PO Q6H PRN 10/16/20 10/16/20 History oxycodone [OxyContin] 80 mg PO Q12H 10/16/20 10/16/20 History potassium chloride 10 meq PO BID 10/16/20 10/16/20 History tamsulosin 0.4 mg PO DAILY 10/16/20 10/16/20 History Physical Exam Vital Signs: Last Vital Signs Temp 98.3 F 10/17/20 06:17 Pulse 78 10/17/20 10:28 Resp 18 10/17/20 10:28 BP 127/60 10/17/20 10:28 Pulse Ox 94 10/17/20 10:28 Body Mass Index 37.0 Const General: no acute distress Neck Neck: Yes supple Resp Auscultation: diminished lung sounds Cardio Rate: regular rate GI Palpation (GI): Soft to palpation Neuro General: moves all extremities Results Lab Results Result Diagrams: 10/17/20 06:24 10/17/20 06:24 Lab results: Chemistry 10/16/20 10/16/20 10/16/20 08:41 11:59 16:55 Sodium 118 L* 120 L* 121 L Potassium 2.3 L* 2.4 L* 2.4 L* Carbon Dioxide 37 H 35 H 41 H* BUN 13 12 10 Creatinine 0.90 0.84 0.80 Calcium 7.8 L D 7.8 L 7.6 L Phosphorus 1.9 L 10/16/20 10/17/20 22:03 06:24 Sodium 120 L* 120 L* Potassium 2.5 L* 2.7 L Carbon Dioxide 39 H 36 H BUN 9 8 L Creatinine 0.78 0.75 Calcium 7.6 L 7.8 L Phosphorus Hematology 10/16/20 10/17/20 08:41 06:24 WBC 12.4 H 12.0 H Hgb 12.3 L 11.7 L Plt Count 239 264 Urinalysis 10/16/20 10/16/20 12:56 12:56 Urine Color YELLOW Cancelled Urine Appearance CLEAR Cancelled Urine pH 6.5 Cancelled Ur Specific [place] 1.015 Cancelled Urine Protein NEG Cancelled Urine Glucose (UA) 100 H Cancelled Urine Ketones NEG Cancelled Urine Blood TRACE Cancelled Urine Nitrite NEG Cancelled Ur Leukocyte Esterase NEG Cancelled Urine RBC 0-2 Urine WBC 0-2 Ur Squamous Epith Cells TRACE Urine Studies 10/16/20 12:56 Urine Osmolality 434 Assessment and Plan (1) Hypokalemia: Problem details: Aggressive K replacement Needs to keep K over 4 Status: Acute (2) Hyponatremia: Problem details: Likely hypovolemic hyponatremia Was orthostatic at presentation Lasix/Metalozone on hold Was given 1 L fluid in ER Urine studies reviewed Shall give 0.9 % NaCl 100 /hr X 10 hours Will order further work up only if not improving Free water restriction 1.5 L/ 24 hours Status: Acute (3) Metabolic alkalosis: Problem details: Need to correct hypokalemia No indication for Diamox now Status: Acute
[2020-10-17] MEDS: 0.9 % Sodium Chloride 1,000 ML 100 ML IVCONT (12:59)
--- NOTE | 2020-10-17 14:00 | PC.NURSE ---
PT REPORTS FEELING A LITTLE BETTER AFTER THE OXYCOTIN PAIN AT 6/ PT ATE HIS LUNCH
--- NOTE | 2020-10-17 14:39 | MHC.CM.PN ---
Attempted to meet with patient in regards to discharge planning. Patient received Oxycontin and is currently sleeping. Called patient's step son, Isauro at [phone]. Patient lives alone, ambulates independently and still drives. No HCP on file here or at PCP's office. IMM explained and left at patient's bedside. Do not anticipate services will be needed. Continue to monitor for d/c needs.
--- NOTE | 2020-10-17 16:41 | P.EN_ITS ---
Event Note Date of Service: 10/16/20 Event Note: 75-year-old gentleman with past medical history of atrial fibrilla tion, congestive heart failure, chronic back pain obstructive sleep apnea, chronic back pain on high dose narcotic medication presented to [facility] due to symptoms of dizziness and not feeling right patient took an extra dose of 80 mg Oxy Contin the night before presentation, patient also on high-dose Lasix and metolazone at home, he denies any associated shortness of breath chest pain near-syncope in ER patient was noted to have tachycardia with soft blood pressure, labs showed hyponatremia, hypokalemia and hypomagnesemia no history of alcohol abuse. On examination awake alert Lungs clear to auscultation Abdomen obese soft nontender Extremities no edema Assessment and plan Hyponatremia/hypokalemia/hypo magnesemia Dizziness/ Soft blood pressure Will obtain orthostatic blood pressure, hold diuretic, replace potassium magnesium and sodium not more than 8-10 mEq in 24 hours. obtain nephrology consultation follow electrolytes q.4 hours.
--- NOTE | 2020-10-17 16:51 | P.PNIM_ITS ---
Subjective Subjective Date of Service: 10/17/20 Interval History: Patient complaining of back pain, otherwise dizziness has resolved denies nausea, vomiting, no diarrhea, no other acute issues since admission, persistent electrolyte abnormality. General no headache, no dizziness, no fever,no chills, lower back pain. CVS no chest pain, no palpitation. Respiratory no cough, no shortness of breath. Gastrointestinal no nausea, no vomiting, no abdominal pain. Physical Exam Vital Signs: Vital Signs: Last Vital Signs Temp 98.2 F 10/17/20 16:05 Pulse 95 10/17/20 16:05 Resp 20 10/17/20 16:05 BP 152/74 H 10/17/20 16:05 Pulse Ox 93 10/17/20 16:05 Body Mass Index 37.0 General no acute distress. Neck supple no JVD. CVS irregular Respiratory lungs clear to auscultation, no respiratory distress, no wheeze, no rhonchi. Gastrointestinal abdomen obese, soft, nontender, bowel sounds audible. Extremities no edema. Neuro nonfocal , speech clear. Skin no rash Objective Data Current Medications Generic Name Dose Route Start Last Admin Trade Name Freq PRN Reason Stop Dose Admin Acetaminophen 650 mg 10/16/20 13:07 Acetaminophen 325 Mg Tablet PO Q6H PRN Pain, Mild (Pain Scale 1-3) Apixaban 5 mg 10/16/20 21:00 10/17/20 08:44 Apixaban 5 Mg Tablet PO 5 mg BID ROCK Administration Sodium Chloride 1,000 mls @ 100 mls/hr 10/17/20 12:45 10/17/20 12:59 Ns IVCONT 10/17/20 22:44 100 mls/hr .Q10H ROCK Administration Ondansetron HCl 4 mg 10/16/20 13:07 Ondansetron Hcl 4 Mg/2 Ml Vial IVPUSH Q8H PRN Nausea and Vomiting Oxycodone HCl 15 mg 10/16/20 13:02 10/17/20 16:08 Oxycodone Hcl Immed Release 15 Mg Tablet PO 15 mg Q6H PRN Administration Breakthrough Pain Oxycodone HCl 80 mg 10/16/20 13:15 10/17/20 12:57 Oxycodone Hcl Er 40 Mg Tab.Er.12h PO 80 mg Q12H ROCK Administration Pharmacy Consult 1 each 10/16/20 11:32 Consult Rx Perform Med Rec MISCELLANE ONCE PRN Consult order Potassium Chloride 40 meq 10/17/20 09:00 10/17/20 07:37 Potassium Chloride Er 10 Meq Capsule.Er PO 40 meq BID ROCK Administration Sodium Chloride 3 ml 10/16/20 16:00 10/17/20 15:53 0.9 % Sodium Chloride Flush 3 Ml Syringe IVFLUSH 3 ml QSHIFT ROCK Administration Tamsulosin HCl 0.4 mg 10/17/20 09:00 10/17/20 08:44 Tamsulosin Hcl 0.4 Mg Capsule PO 0.4 mg DAILY RCOK Administration Labs CBC & Chem 7: 10/17/20 06:24 10/17/20 06:24 Assessment and Plan (1) Hyponatremia: Problem details: Likely hypovolemic hyponatremia Was orthostatic at presentation Lasix/Metalozone on hold Was given 1 L fluid in ER Urine studies reviewed Shall give 0.9 % NaCl 100 /hr X 10 hours Will order further work up only if not improving Free water restriction 1.5 L/ 24 hours Status: Acute (2) Hypokalemia: Problem details: Aggressive K replacement Needs to keep K over 4 Status: Acute (3) Metabolic alkalosis: Problem details: Need to correct hypokalemia No indication for Diamox now Status: Acute (4) Hypomagnesemia: Status: Acute (5) Dizziness: Status: Acute (6) Morbid obesity: Status: Acute Assessment and Plan: 75 year old man presented with dizziness and fogginess and diagnosed to have hyponatremia, hypokalemia, and hypomagnesemia. Dizziness likely related to electrolyte abnormalities and soft BP follow orthostatic blood pressure Hyponatremia. Likely hypovolemic hyponatremia with use of high-dose diuretics, Sodium improved from 118-120 , will give IV normal saline 100 mL/hour repeat BMP in 6 hours case discussed with Nephrology, will place patient on fluid restriction 1.5 L, continue to hold Lasix and metolazone Hypokalemia. Likely from Lasix. Potassium remains low will give potassium replacement and follow BMP Hypomagensemia. Improved magnesium 1.9 today Chronic Atrial fibrillation stable ventricular rate continue Eliquis, not on rate controlling medication Chronic pain. Opioid dependant. Oxycontin 80mg BID, Oxycodone 15 mg QID. Continue current dosage will need outpatient pain management. CHF. No echo available, therefore not aware of EF, No overt failure. Hold Lasix due to hyponatremia and soft blood pressure. Morbid obesity contributing to chronic pain strongly advised to follow low- calorie diet. DVT prophylaxis with Eliquis.
[2020-10-17 17:28] LABS: Anion Gap 15 (12-20); Blood Urea Nitrogen 7 mg/dL (9-16); Calcium 7.8 mg/dL (8.4-10.2); Carbon Dioxide 35 mmol/L (22-29); Chloride 74 mmol/L (96-108); Estimated Glomerular Filt Rate > 60; Glucose Random 163 mg/dL (60-115); Potassium 2.7 mmol/L (3.3-5.1); Sodium 121 mmol/L (135-145)
[2020-10-17] MEDS: Potassium Chloride ER 20 MEQ TAB.ER.PRT 40 MEQ PO (18:24)
--- NOTE | 2020-10-17 19:10 | PC.NURSE ---
REPORT RECEIVED FROM ANASTASIA CAMERON. PT IS CALM/COOPERATIVE AT THIS TIME. AWAITING ADMITTING BED ASSIGNMENT FROM [facility].
--- NOTE | 2020-10-17 19:40 | PC.NURSE ---
PATIENT TO BE ADMITTED TO ROOM 352-1. CALLED UNIT TO GIVE RN TO RN REPORT, HOWEVER, NURSE IS UNAVAILABLE AT THIS TIME AND WILL CALL BACK FOR REPORT. AWAITING CALL BACK.
--- NOTE | 2020-10-17 19:50 | PC.NURSE ---
REPORT GIVEN TO ANASTASIA CHAUDHRY. PREPARING FOR TRANSFER/ADMISSION TO [facility].
[2020-10-17 20:41] LABS: Glucose, Whole Blood 232 mg/dL (60-115)
[2020-10-18] MEDS: oxyCODONE HCl ER 40 MG TAB.ER.12H 80 MG PO (01:08)
[2020-10-18 03:51] VITALS: BP 154/83; PULSE 78; RESP 18; TEMP 36.9; O2SAT 96
[2020-10-18] MEDS: oxyCODONE HCl Immed Release 15 MG TABLET PO (06:31)
[2020-10-18 07:24] VITALS: BP 162/84; PULSE 100; RESP 18; TEMP 35.6; O2SAT 95
[2020-10-18 07:31] LABS: Anion Gap 14 (12-20); Blood Urea Nitrogen 6 mg/dL (9-16); Calcium 7.3 mg/dL (8.4-10.2); Carbon Dioxide 32 mmol/L (22-29); Chloride 77 mmol/L (96-108); Creatinine Clr Calc Pharmacy 135.5; Estimated Glomerular Filt Rate > 60; Glucose Random 157 mg/dL (60-115); Magnesium 2.1 mg/dL (1.6-2.6); Potassium 2.9 mmol/L (3.3-5.1); Sodium 120 mmol/L (135-145)
[2020-10-18 08:04] LABS: Glucose, Whole Blood 170 mg/dL (60-115)
[2020-10-18 08:36] VITALS: BP 187/81; PULSE 98
--- NOTE | 2020-10-18 09:05 | PM.PNNEP ---
Subjective Subjective Date of Service: 10/18/20 Interval history: Events noted Very anxious Says he is withdrawing Admits to drinking lots of water at home Physical Exam Vital Signs: Vital Signs: Last Vital Signs Temp 96.1 F L 10/18/20 07:24 Pulse 100 10/18/20 07:24 Resp 18 10/18/20 07:24 BP 162/84 H 10/18/20 07:24 Pulse Ox 95 10/18/20 07:24 Body Mass Index 37.0 Const: General: anxious Orientation/consciousness: patient oriented x3 Eyes: Eyelids: Yes eyelids normal Neck: Neck: Yes supple Resp: Effort & Inspection: normal respiratory effort Cardio: Palpation: no palpable S4 Rate: regular rate GI: Inspection: Yes obesity Palpation (GI): Soft to palpation Auscultation: normal bowel sounds Skin: General skin exam: no erythema and no jaundice Neuro: General: patient oriented x3 and no focal motor deficits Cranial nerves: Yes Nystagmus not present Speech: Abnormal speech present Objective Data Labs CBC & Chem 7: 10/17/20 06:24 10/18/20 06:16 Labs: Laboratory Results - last 24 hr 10/17/20 10/17/20 10/18/20 16:40 20:25 06:16 Sodium 121 L 120 L* Potassium 2.7 L 2.9 L Chloride 74 L 77 L Carbon Dioxide 35 H 32 H Anion Gap 15 14 BUN 7 L 6 L Creatinine 0.71 0.66 Estim Creat Clear Calc 126.0 135.5 Estimated GFR > 60 > 60 POC Glucose 232 H Random Glucose 163 H 157 H Calcium 7.8 L 7.3 L D Magnesium 2.1 10/18/20 07:27 Sodium Potassium Chloride Carbon Dioxide Anion Gap BUN Creatinine Estim Creat Clear Calc Estimated GFR POC Glucose 170 H Random Glucose Calcium Magnesium Assessment & Plan Assessment and plan (1) Metabolic alkalosis: Problem details: Need to correct volume contraction IV NS No indication for Diamox now Status: Acute (2) Hypokalemia: Problem details: Aggressive K replacement Needs to keep K over 4 KCL 40 meq PO Q 8 x 4 doses Status: Acute (3) Hyponatremia: Problem details: Likely hypovolemic hyponatremia Was orthostatic at presentation Lasix/Metalozone on hold Urine studies reviewed Shall give 0.9 % NaCl 100 /hr Free water restriction 1.5 L/ 24 hours Will add UREA 15 gm PO BID x 4 doses Status: Acute Time Spent With Patient Time: Total time spent is greater than 50% in coordination of care (as documented) at patient's floor/unit and/or counseling patient:
[2020-10-18] MEDS: Tamsulosin HCL 0.4 MG CAPSULE PO (09:35)
[2020-10-18] MEDS: oxyCODONE HCl ER 40 MG TAB.ER.12H PO (09:35)
[2020-10-18] MEDS: Apixaban 5 MG TABLET PO (09:35)
[2020-10-18] MEDS: 0.9 % Sodium Chloride Flush 3 ML SYRINGE IVFLUSH (09:36)
[2020-10-18 09:37] VITALS: BP 195/81; PULSE 111
[2020-10-18 09:42] VITALS: BP 173/88; PULSE 80
--- NOTE | 2020-10-18 11:44 | PC.NURSE ---
1045 states he is going to leave AMA. He knows his body and will be fine Dr Gardner made aware. Pt aware of risks, is not concerned although verbalizes understanding. He just wants to go home. Signed AMA paper, IV removed.
--- NOTE | 2020-10-18 14:31 | PM.DS ---
DS: Providers Provider Date of Service: 10/18/20 Date of admission: 10/16/20 13:07 Primary care physician: Rubio Mc MD Consults: 10/16/20 13:12 Consult to WELLNESS PROGRAM ADMINISTRATOR Routine Consulting Provider: Joanne Mccartney Reason for consultation: opioid dep, 20+ yrs ? suboxone candidate Has provider been notified: No 10/17/20 09:21 Consult to Nephrology Routine Consulting Provider: Naseem Gilbert Reason for consultation: hyponatremia Has provider been notified: Yes DS: Diagnosis Discharge Diagnosis (1) Metabolic alkalosis: Status: Acute Problem details: Need to correct volume contraction IV NS No indication for Diamox now (2) Hypokalemia: Status: Acute Problem details: Aggressive K replacement Needs to keep K over 4 KCL 40 meq PO Q 8 x 4 doses (3) Hyponatremia: Status: Acute Problem details: Likely hypovolemic hyponatremia Was orthostatic at presentation Lasix/Metalozone on hold Urine studies reviewed Shall give 0.9 % NaCl 100 /hr Free water restriction 1.5 L/ 24 hours Will add UREA 15 gm PO BID x 4 doses DS: Medications Discharge Medications Home Medications: Home Medications Medication Instructions Recorded Confirmed apixaban [Eliquis] 5 mg PO BID 10/16/20 10/16/20 furosemide 80 mg PO BID 10/16/20 10/16/20 metolazone 5 mg PO SA@1000 10/16/20 10/16/20 oxycodone 15 mg PO Q6H PRN 10/16/20 10/16/20 oxycodone [OxyContin] 80 mg PO Q12H 10/16/20 10/16/20 potassium chloride 10 meq PO BID 10/16/20 10/16/20 tamsulosin 0.4 mg PO DAILY 10/16/20 10/16/20 DS: Summary Hospital Course Hospital Course: History of presenting illness 75 year old man presenting with dizziness and feeling foggy . He reported that he takes oxycontin and oxycodone due to chronic back pain. He takes 80 mg of oxycontin and 4-15mg oxycodone a day. However, he stated that he splits the 80mg oxycontin and takes them every 6 hours. He stated that he took one extra 80mg oxycontin last night and feels like that may have caused his blood pressure to go down and cause his dizziness.He denied chest pain, shortness of breath, fever, chills, nausea or vomiting. His sodium was noted to be low at 118, potassium 2.3. Past medical history Afib CHF (congestive heart failure) Chronic back pain Hyperlipidemia Obstructive sleep apnea 75 year old man presented with dizziness and fogginess and diagnosed to have hyponatremia, hypokalemia, and hypomagnesemia, patient was admitted to medical floor was started on IV normal saline drip, potassium was aggressively repleted, he was placed on fluid restriction 1.5 L, patient dizziness and fogginess resolved but he continued to have low sodium around 120 and potassium of 2.9 plan was to increase potassium supplement and add urea as per Nephro recommendation but patient complained of withdrawal symptoms and wanted to leave AMA and demanded his OxyContin to be switched to 40 mg q.6 hours, explained to patient that he cannot leave AMA since his sodium and potassium is very low and informed him the risk including due to arrhythmias, OxyContin dose was changed to 40 mg q.6 hours patient was given OxyContin 40 mg stat, but despite of receiving the medication patient decided to leave hospital against medical advice and did not wait to rediscuss the case patient was evaluated prior to discharge by Nephrology. Hypomagensemia. Improved to 1.9 Chronic Atrial fibrillation stable ventricular rate on Eliquis, not on rate controlling medication Chronic pain. Opioid dependant. Oxycontin 80mg BID, Oxycodone 15 mg QID. Take OxyContin 40 mg q.6 hours at home. CHF. No echo available, therefore not aware of EF, No overt failure. Lasix was held due to hyponatremia and soft blood pressure. Morbid obesity recommended low-calorie diet. Time Spent with Patient Time attestation: Total time spent providing and/or coordinating discharge services: Discharge coordination time: Greater than 30 minutes Physical Exam Vital Signs: Vital Signs: Last Vital Signs Temp 96.1 F L 10/18/20 07:24 Pulse 80 10/18/20 09:42 Resp 18 10/18/20 07:24 BP 173/88 H 10/18/20 09:42 Pulse Ox 95 10/18/20 07:24 Body Mass Index 37.0 General no acute distress. Neck supple no JVD. CVS irregular Respiratory lungs clear to auscultation, no respiratory distress, no wheeze, no rhonchi. Gastrointestinal abdomen obese, soft, nontender, bowel sounds audible. Extremities no edema. Neuro nonfocal , awake alert, speech clear. Skin no rash DS: Data Data Completed and Pending Labs on day of discharge: Laboratory Tests 10/16/20 10/16/20 10/16/20 08:41 08:41 08:41 WBC 12.4 H RBC 4.44 L Hgb 12.3 L Hct 35.2 L MCV 79.3 L MCH 27.7 MCHC 34.9 RDW 14.3 Plt Count 239 MPV 9.8 Immature Gran % (Auto) 0.7 H Neut % (Auto) 87.1 H Lymph % (Auto) 4.2 L [place] % (Auto) 7.7 Eos % (Auto) 0.1 Baso % (Auto) 0.2 Lymph # (Auto) 0.5 L [place] # (Auto) 1.0 Eos # (Auto) 0.0 Baso # (Auto) 0.0 Abs Immat Gran (auto) 0.09 H Absolute Neuts (auto) 10.8 H Absolute Nucleated RBC 0.000 Nucleated RBC % (auto) 0.0 Smear Tech's Comments VERIFIED Sodium 118 L* Potassium 2.3 L* Chloride 62 L D Carbon Dioxide 37 H Anion Gap 21 H BUN 13 Creatinine 0.90 Estim Creat Clear Calc 99.4 Estimated GFR > 60 POC Glucose Random Glucose 252 H D Calcium 7.8 L D Phosphorus 1.9 L Magnesium 1.5 L Total Bilirubin 0.7 Direct Bilirubin 0.3 AST 44 H D ALT 40 Alkaline Phosphatase 106 D Troponin I High Sens 9.4 Total Protein 7.1 Albumin 4.1 Lipase 426 H Urine Color Urine Appearance Urine pH Ur Specific [place] Urine Protein Urine Glucose (UA) Urine Ketones Urine Blood Urine Nitrite Ur Leukocyte Esterase Urine RBC Urine WBC Ur Squamous Epith Cells Urine Bacteria Urine Osmolality Ur Random Sodium Ur Random Potassium Urine Opiates Screen Ur Barbiturates Screen Ur Phencyclidine Scrn Ur Amphetamines Screen U Benzodiazepines Scrn Urine Cocaine Screen U Marijuana (THC) Screen COVID-19 (CODY) COVID-19 Clin Com 10/16/20 10/16/20 10/16/20 11:39 11:59 12:56 WBC RBC Hgb Hct MCV MCH MCHC RDW Plt Count MPV Immature Gran % (Auto) Neut % (Auto) Lymph % (Auto) [place] % (Auto) Eos % (Auto) Baso % (Auto) Lymph # (Auto) [place] # (Auto) Eos # (Auto) Baso # (Auto) Abs Immat Gran (auto) Absolute Neuts (auto) Absolute Nucleated RBC Nucleated RBC % (auto) Smear Tech's Comments Sodium 120 L* Potassium 2.4 L* Chloride 65 L Carbon Dioxide 35 H Anion Gap 22 H BUN 12 Creatinine 0.84 Estim Creat Clear Calc 106.5 Estimated GFR > 60 POC Glucose Random Glucose 230 H Calcium 7.8 L Phosphorus Magnesium Total Bilirubin Direct Bilirubin AST ALT Alkaline Phosphatase Troponin I High Sens Total Protein Albumin Lipase Urine Color YELLOW Urine Appearance CLEAR Urine pH 6.5 Ur Specific [place] 1.015 Urine Protein NEG Urine Glucose (UA) 100 H Urine Ketones NEG Urine Blood TRACE Urine Nitrite NEG Ur Leukocyte Esterase NEG Urine RBC 0-2 Urine WBC 0-2 Ur Squamous Epith Cells TRACE Urine Bacteria NONE Urine Osmolality Ur Random Sodium Ur Random Potassium Urine Opiates Screen Ur Barbiturates Screen Ur Phencyclidine Scrn Ur Amphetamines Screen U Benzodiazepines Scrn Urine Cocaine Screen U Marijuana (THC) Screen COVID-19 (CODY) Negative COVID-19 Clin Com See Note 10/16/20 10/16/20 10/16/20 12:56 12:56 12:56 WBC RBC Hgb Hct MCV MCH MCHC RDW Plt Count MPV Immature Gran % (Auto) Neut % (Auto) Lymph % (Auto) [place] % (Auto) Eos % (Auto) Baso % (Auto) Lymph # (Auto) [place] # (Auto) Eos # (Auto) Baso # (Auto) Abs Immat Gran (auto) Absolute Neuts (auto) Absolute Nucleated RBC Nucleated RBC % (auto) Smear Tech's Comments Sodium Potassium Chloride Carbon Dioxide Anion Gap BUN Creatinine Estim Creat Clear Calc Estimated GFR POC Glucose Random Glucose Calcium Phosphorus Magnesium Total Bilirubin Direct Bilirubin AST ALT Alkaline Phosphatase Troponin I High Sens Total Protein Albumin Lipase Urine Color Urine Appearance Urine pH Ur Specific [place] Urine Protein Urine Glucose (UA) Urine Ketones Urine Blood Urine Nitrite Ur Leukocyte Esterase Urine RBC Urine WBC Ur Squamous Epith Cells Urine Bacteria Urine Osmolality 434 Ur Random Sodium 29.0 Ur Random Potassium 49.1 Urine Opiates Screen POSITIVE H Ur Barbiturates Screen Not Detected Ur Phencyclidine Scrn Not Detected Ur Amphetamines Screen Not Detected U Benzodiazepines Scrn Not Detected Urine Cocaine Screen Not Detected U Marijuana (THC) Screen Not Detected COVID-19 (CODY) COVID-19 [employer] 10/16/20 10/16/20 10/16/20 12:56 16:55 22:03 WBC RBC Hgb Hct MCV MCH MCHC RDW Plt Count MPV Immature Gran % (Auto) Neut % (Auto) Lymph % (Auto) [place] % (Auto) Eos % (Auto) Baso % (Auto) Lymph # (Auto) [place] # (Auto) Eos # (Auto) Baso # (Auto) Abs Immat Gran (auto) Absolute Neuts (auto) Absolute Nucleated RBC Nucleated RBC % (auto) Smear Tech's Comments Sodium 121 L 120 L* Potassium 2.4 L* 2.5 L* Chloride 67 L 68 L Carbon Dioxide 41 H* 39 H Anion Gap 15 16 BUN 10 9 Creatinine 0.80 0.78 Estim Creat Clear Calc 111.8 114.7 Estimated GFR > 60 > 60 POC Glucose Random Glucose 169 H 169 H Calcium 7.6 L 7.6 L Phosphorus Magnesium Total Bilirubin Direct Bilirubin AST ALT Alkaline Phosphatase Troponin I High Sens Total Protein Albumin Lipase Urine Color Cancelled Urine Appearance Cancelled Urine pH Cancelled Ur Specific [place] Cancelled Urine Protein Cancelled Urine Glucose (UA) Cancelled Urine Ketones Cancelled Urine Blood Cancelled Urine Nitrite Cancelled Ur Leukocyte Esterase Cancelled Urine RBC Urine WBC Ur Squamous Epith Cells Urine Bacteria Urine Osmolality Ur Random Sodium Ur Random Potassium Urine Opiates Screen Ur Barbiturates Screen Ur Phencyclidine Scrn Ur Amphetamines Screen U Benzodiazepines Scrn Urine Cocaine Screen U Marijuana (THC) Screen COVID-19 (CODY) COVID-19 [employer] 10/17/20 10/17/20 10/17/20 06:24 06:24 08:21 WBC 12.0 H RBC 4.19 L Hgb 11.7 L Hct 33.8 L MCV 80.7 MCH 27.9 MCHC 34.6 RDW 14.3 Plt Count 264 MPV 9.8 Immature Gran % (Auto) 0.7 H Neut % (Auto) 83.4 H Lymph % (Auto) 6.1 L [place] % (Auto) 9.3 Eos % (Auto) 0.3 Baso % (Auto) 0.2 Lymph # (Auto) 0.7 L [place] # (Auto) 1.1 Eos # (Auto) 0.0 Baso # (Auto) 0.0 Abs Immat Gran (auto) 0.08 H Absolute Neuts (auto) 10.0 H Absolute Nucleated RBC 0.000 Nucleated RBC % (auto) 0.0 Smear Tech's Comments Sodium 120 L* Potassium 2.7 L Chloride 71 L Carbon Dioxide 36 H Anion Gap 16 BUN 8 L Creatinine 0.75 Estim Creat Clear Calc 119.3 Estimated GFR > 60 POC Glucose Random Glucose 202 H Calcium 7.8 L Phosphorus Magnesium 1.9 Total Bilirubin Direct Bilirubin AST ALT Alkaline Phosphatase Troponin I High Sens Total Protein Albumin Lipase Urine Color Urine Appearance Urine pH Ur Specific [place] Urine Protein Urine Glucose (UA) Urine Ketones Urine Blood Urine Nitrite Ur Leukocyte Esterase Urine RBC Urine WBC Ur Squamous Epith Cells Urine Bacteria Urine Osmolality Ur Random Sodium Ur Random Potassium Urine Opiates Screen Ur Barbiturates Screen Ur Phencyclidine Scrn Ur Amphetamines Screen U Benzodiazepines Scrn Urine Cocaine Screen U Marijuana (THC) Screen COVID-19 (CODY) COVID-19 [employer] A/S Com 10/17/20 10/17/20 10/18/20 16:40 20:25 06:16 WBC RBC Hgb Hct MCV MCH MCHC RDW Plt Count MPV Immature Gran % (Auto) Neut % (Auto) Lymph % (Auto) [place] % (Auto) Eos % (Auto) Baso % (Auto) Lymph # (Auto) [place] # (Auto) Eos # (Auto) Baso # (Auto) Abs Immat Gran (auto) Absolute Neuts (auto) Absolute Nucleated RBC Nucleated RBC % (auto) Smear Tech's Comments Sodium 121 L 120 L* Potassium 2.7 L 2.9 L Chloride 74 L 77 L Carbon Dioxide 35 H 32 H Anion Gap 15 14 BUN 7 L 6 L Creatinine 0.71 0.66 Estim Creat Clear Calc 126.0 135.5 Estimated GFR > 60 > 60 POC Glucose 232 H Random Glucose 163 H 157 H Calcium 7.8 L 7.3 L D Phosphorus Magnesium 2.1 Total Bilirubin Direct Bilirubin AST ALT Alkaline Phosphatase Troponin I High Sens Total Protein Albumin Lipase Urine Color Urine Appearance Urine pH Ur Specific [place] Urine Protein Urine Glucose (UA) Urine Ketones Urine Blood Urine Nitrite Ur Leukocyte Esterase Urine RBC Urine WBC Ur Squamous Epith Cells Urine Bacteria Urine Osmolality Ur Random Sodium Ur Random Potassium Urine Opiates Screen Ur Barbiturates Screen Ur Phencyclidine Scrn Ur Amphetamines Screen U Benzodiazepines Scrn Urine Cocaine Screen U Marijuana (THC) Screen COVID-19 (CODY) COVID-19 [employer] [facility]/[employer] Com 10/18/20 07:27 WBC RBC Hgb Hct MCV MCH MCHC RDW Plt Count MPV Immature Gran % (Auto) Neut % (Auto) Lymph % (Auto) [place] % (Auto) Eos % (Auto) Baso % (Auto) Lymph # (Auto) [place] # (Auto) Eos # (Auto) Baso # (Auto) Abs Immat Gran (auto) Absolute Neuts (auto) Absolute Nucleated RBC Nucleated RBC % (auto) Smear Tech's Comments Sodium Potassium Chloride Carbon Dioxide Anion Gap BUN Creatinine Estim Creat Clear Calc Estimated GFR POC Glucose 170 H Random Glucose Calcium Phosphorus Magnesium Total Bilirubin Direct Bilirubin AST ALT Alkaline Phosphatase Troponin I High Sens Total Protein Albumin Lipase Urine Color Urine Appearance Urine pH Ur Specific [place] Urine Protein Urine Glucose (UA) Urine Ketones Urine Blood Urine Nitrite Ur Leukocyte Esterase Urine RBC Urine WBC Ur Squamous Epith Cells Urine Bacteria Urine Osmolality Ur Random Sodium Ur Random Potassium Urine Opiates Screen Ur Barbiturates Screen Ur Phencyclidine Scrn Ur Amphetamines Screen U Benzodiazepines Scrn Urine Cocaine Screen U Marijuana (THC) Screen COVID-19 (CODY) COVID-19 Clin Com Discharge Plan Discharge Patient Disposition: Left Against Medical Advice Referrals: Rubio Mc MD [Primary Care Provider] - Discharge Medications: No Action metolazone 5 mg Tablet 5 mg PO SA@1000 RF: 0 oxycodone [OxyContin] 80 mg Tablet,Oral Only,Ext.Rel.12 Hr 80 mg PO Q12H RF: 0 furosemide 40 mg Tablet 80 mg PO BID RF: 0 oxycodone 15 mg Tablet 15 mg PO Q6H PRN (Reason: Breakthrough Pain) RF: 0 Eliquis 5 mg Tablet 5 mg PO BID RF: 0 potassium chloride 10 mEq Capsule, Extended Release 10 meq PO BID RF: 0 tamsulosin 0.4 mg Capsule 0.4 mg PO DAILY RF: 0 Discharge Orders: Discharge Order (Routine); Ordered 10/18/20 Ordered By: Monique Gardner Care Plan Goals: Left against medical advice Health Concerns: Hyponatremia/hypokalemia Plan of Treatment: Left against medical advice Discharge Date/Time: 10/18/20 11:00
[2020-10-20 13:31] LABS: Sodium 120 mmol/L (135-145)
[2020-10-20 13:32] LABS: Potassium 2.5 mmol/L (3.3-5.1)
== END 2020-10-18 11:00 | disposition left against medical advice (07) | DRG 641 ==
LOC: HO.ED 12:20 → HO.EDOVER 13:37 → HO.S3 10-17 19:30
PROVIDERS: Nurse Practitioner Acute Care; Admitting Provider Hospitalist; Emergency Provider Emergency Medicine; PCP Family Medicine; Visit Provider Hospitalist
DX: E87.1 Hypo-osmolality and hyponatremia (principal); I48.20 Chronic atrial fibrillation, unspecified; E87.6 Hypokalemia; G47.33 Obstructive sleep apnea (adult) (pediatric); G89.4 Chronic pain syndrome; E66.01 Morbid (severe) obesity due to excess calories; Z68.37 Body mass index [BMI] 37.0-37.9, adult; I50.9 Heart failure, unspecified; E83.42 Hypomagnesemia; E78.5 Hyperlipidemia, unspecified; E87.3 Alkalosis; Z20.822 Contact with and (suspected) exposure to COVID-19; Z79.01 Long term (current) use of anticoagulants; Z79.891 Long term (current) use of opiate analgesic; Z79.899 Other long term (current) drug therapy
CPT/HCPCS: 36415; 71045; 80048; 80076; 80307; 81001; 82947; 83690; 83735; 83935; 84100; 84133; 84300; 84484; 85025; 87635; 93005; 96361; 96365; 99285; J3475

== ENCOUNTER 2020-10-20 11:52 | Outpatient (REF) | payer MEDICARE, OTHER, SELFPAY ==
[2020-10-20 13:34] LABS: B Type Natriuretic Peptide 84 pg/mL (<100)
[2020-10-20 13:41] LABS: Amphetamine Screen Urine Not Detected (Not Detect); Barbiturates, Urine Not Detected (Not Detect); Benzodiazepines Screen Urine Not Detected (Not Detect); Cannabinoid Screen Urine Not Detected (Not Detect); Cocaine Screen Urine Not Detected (Not Detect); Creatinine Urine 32.65 mg/dL; Microalbum/Creatinine Ratio Ur 39.8 ug/mg cr; Opiate Screen Urine POSITIVE (Not Detect); Phencyclidine Screen Urine Not Detected (Not Detect)
[2020-10-20 13:43] LABS: Estimated Average Glucose 192 mg/dL; Hemoglobin A1c % 8.3 %
[2020-10-20 13:52] LABS: Alanine Aminotransferase 63 U/L (0-40); Albumin Level 4.1 g/dL (3.5-5.0); Alkaline Phosphatase 105 U/L (39-117); Anion Gap 15 (12-20); Aspartate Amino Transferase 73 U/L (5-37); Bilirubin Total 0.8 mg/dL (0.0-1.0); Blood Urea Nitrogen 7 mg/dL (9-16); Calcium 8.2 mg/dL (8.4-10.2); Carbon Dioxide 31 mmol/L (22-29); Chloride 77 mmol/L (96-108); Cholesterol 219 mg/dL; Estimated Glomerular Filt Rate > 60; Glucose Random 166 mg/dL (60-115); HDL Cholesterol 61 mg/dL; LDL Cholesterol Calculated 143 mg/dl; Potassium 3.2 mmol/L (3.3-5.1); Sodium 121 mmol/L (135-145); Total Protein 6.9 g/dL (6.5-8.0); Triglycerides 77 mg/dL
== END 2020-10-20 11:53 | disposition home or self-care (01) ==
LOC: HO.LAB 11:52
PROVIDERS: PCP Family Medicine; Visit Provider Family Medicine
DX: I50.9 Heart failure, unspecified (principal); E11.9 Type 2 diabetes mellitus without complications
CPT/HCPCS: 80053; 80061; 80307; 82043; 83036; 83880

== ENCOUNTER 2020-10-30 11:24 | Outpatient (REF) | payer MEDICARE, OTHER, SELFPAY ==
[2020-10-30 12:36] LABS: Alanine Aminotransferase 53 U/L (0-40); Albumin Level 4.2 g/dL (3.5-5.0); Alkaline Phosphatase 92 U/L (39-117); Anion Gap 17 (12-20); Aspartate Amino Transferase 39 U/L (5-37); Bilirubin Total 0.5 mg/dL (0.0-1.0); Blood Urea Nitrogen 16 mg/dL (9-16); Calcium 9.2 mg/dL (8.4-10.2); Carbon Dioxide 40 mmol/L (22-29); Chloride 84 mmol/L (96-108); Estimated Glomerular Filt Rate > 60; Glucose Random 149 mg/dL (60-115); Potassium 4.4 mmol/L (3.3-5.1); Sodium 137 mmol/L (135-145)
== END 2020-10-30 11:25 | disposition home or self-care (01) ==
LOC: HO.LAB 11:24
PROVIDERS: PCP Family Medicine; Visit Provider Family Medicine
DX: E11.9 Type 2 diabetes mellitus without complications (principal)
CPT/HCPCS: 36415; 80053

== ENCOUNTER 2020-12-08 14:17 | Outpatient (REF) | payer MEDICARE, OTHER, SELFPAY ==
[2020-12-08 17:00] LABS: Estimated Average Glucose 194 mg/dL; Hemoglobin A1c % 8.4 %
[2020-12-08 17:13] LABS: Alanine Aminotransferase 30 U/L (0-40); Albumin Level 4.1 g/dL (3.5-5.0); Alkaline Phosphatase 87 U/L (39-117); Anion Gap 18 (12-20); Aspartate Amino Transferase 27 U/L (5-37); Bilirubin Total 0.7 mg/dL (0.0-1.0); Blood Urea Nitrogen 13 mg/dL (9-16); Calcium 9.2 mg/dL (8.4-10.2); Carbon Dioxide 41 mmol/L (22-29); Chloride 86 mmol/L (96-108); Estimated Glomerular Filt Rate > 60; Glucose Random 132 mg/dL (60-115); Potassium 4.6 mmol/L (3.3-5.1); Sodium 140 mmol/L (135-145); Total Protein 7.4 g/dL (6.5-8.0)
== END 2020-12-08 14:18 | disposition home or self-care (01) ==
LOC: HO.LAB 14:17
PROVIDERS: PCP Family Medicine; Visit Provider Family Medicine
DX: E11.9 Type 2 diabetes mellitus without complications (principal)
CPT/HCPCS: 36415; 80053; 83036

== ENCOUNTER 2021-01-12 18:34 | Emergency (ER) | payer OTHER, MEDICARE, SELFPAY ==
--- NOTE | ~2021-01-12 | XR_ITS ---
EXAMINATION: XR HAND, LEFT CLINICAL INFORMATION: Left thumb pain status post fall. COMPARISON: None TECHNIQUE: PA, lateral, and oblique views of the left hand. FINDINGS: There is mild malalignment of the interphalangeal joint of the first digit. Mild distal interphalangeal joint degenerative changes are seen in the remainder the digits. A longitudinal linear lucency is seen in the middle phalanx of the second digit in the lateral projection. There is a possible intra-articular component extending to the proximal interphalangeal joint. The remainder of the digits appear intact. The carpal bones are normally aligned. The distal radius and ulna are intact. XR/XR hand LT min 3V IMPRESSION: 1. Mild subluxation of the first interphalangeal joint without definitive fracture. 2. Longitudinal linear lucency in the middle phalanx of the second digit is only seen on one image and could represent artifact, but a nondisplaced acute fracture cannot be excluded. Correlate with physical exam.
[2021-01-12 19:38] VITALS: BP 124/55; PULSE 86; RESP 18; TEMP 37.6; O2SAT 94; BMI 37.6
[2021-01-12 21:28] VITALS: BP 149/81; PULSE 82; RESP 17; TEMP 37.1; O2SAT 94
[2021-01-12] MEDS: oxyCODONE HCl Immed Release 5 MG TABLET 10 MG PO (22:16)
--- NOTE | 2021-01-12 22:18 | ED_ITS ---
HPI - Extremity Injury (Upper) General Chief Complaint: Fall Stated Complaint: fall Time Seen by Provider: 01/12/21 22:00 Source: patient Mode of arrival: ambulatory Limitations: no limitations History of Present Illness HPI narrative: States had a near fall braces self with left hand catching on radiator causing his left index finger and thumb to hyperflex. States he has injury in the hand before and always had slight deformity in the thumb area. There is no cuts or abrasions. There is slight swelling and bruising. He otherwise denies any other injury he specifically did not hit any part of his torso head or neck. States he otherwise feels fine. complaint: injury to: left Onset (ago): hour(s) Other Extremity Injury: left: fingers Handedness: left Place: home Severity: moderate Relieving factors: none Context: direct blow Associated symptoms: denies other symptoms Related Data Home Medications Medication Instructions Recorded Confirmed apixaban [Eliquis] 5 mg PO BID 10/16/20 10/16/20 furosemide 80 mg PO BID 10/16/20 10/16/20 metolazone 5 mg PO SA@1000 10/16/20 10/16/20 oxycodone 15 mg PO Q6H PRN 10/16/20 10/16/20 oxycodone [OxyContin] 80 mg PO Q12H 10/16/20 10/16/20 potassium chloride 10 meq PO BID 10/16/20 10/16/20 tamsulosin 0.4 mg PO DAILY 10/16/20 10/16/20 Allergies Allergy/AdvReac Type Severity Reaction Status Date / Time No Known Allergies Allergy Verified 01/12/21 19:38 Review of Systems Review of Systems: Constitutional: No Weight loss, No Fever, No Chills, No Night Sweats, No Fatigue, No Malaise ENT/Mouth: No Hearing loss, No Ear Pain, No Nasal Congestion, No Sinus Pain, No Hoarseness, No sore throat, No Rhinorrhea, No Swallowing Difficulty Eyes: No Eye Pain, No Swelling, No Redness, No Foreign Body, No Discharge, No Vision Changes Cardiovascular: No Chest Pain, No SOB, No Dyspnea on Exertion, No Orthopnea, No Edema, No Palpitations Respiratory: No Cough, No Sputum, No Wheezing, No Smoke Exposure, No Dyspnea Gastrointestinal: No Nausea, No Vomiting, No Diarrhea, No Constipation, No abdominal Pain, No Hematochezia, No Melena Genitourinary: no irregular bleeding, No Dysuria, No Urinary Frequency, No Hematuria, No Urinary Incontinence, No Urgency, No Flank Pain, No Urinary Flow Changes, No Hesitancy Musculoskeletal: No joint pain, No Myalgias, No Joint Swelling, as noted per HPI Skin: No Skin Lesions, No rash Neuro: No Weakness, No Numbness, No Paresthesias, No Loss of Consciousness, No Dizziness, No Headache Psych: No Social Issues Heme/Lymph: No Bruising, No Bleeding,No Lymphadenopathy Endocrine: No Polyuria, No Polydipsia, No Temperature Intolerance Yes all other systems are reviewed and are negative [facility] Past Medical History Medical History Afib CHF (congestive heart failure) Chronic back pain Hyperlipidemia Obstructive sleep apnea Surgical History Previous back surgery Social History Social History Household Members: None Housing: Apartment Alcohol intake: unknown Smoking Status: Unknown if ever smoked Advance Directives: No Advance Directives Information Provided: Yes service: Yes Current occupational status: retired Physical Exam Vital Signs: Vital Signs: Last Vital Signs Temp 98.7 F 01/12/21 21:28 Pulse 82 01/12/21 21:28 Resp 17 01/12/21 21:28 BP 149/81 H 01/12/21 21:28 Pulse Ox 94 01/12/21 21:28 Body Mass Index 37.6 Reviewed Const: General: cooperative and healthy appearing; No acute distress or intoxicated appearing Nutritional Appearance: average body habitus Orientation/consciousness: patient oriented x3 HENMT: Head: Yes normal to inspection Ears: hearing grossly normal bilaterally Eyes: General: appearance normal, both eyes and all related structures Visual Hughes: normal visual hughes by confrontation Neck: Neck: Yes normal visual inspection, No positive Brudzinski's sign, No positive Kernig's sign and No tender Thyroid: Thyroid normal Chest: Chest palpation & inspection: normal inspection of the chest Resp: Effort & Inspection: normal respiratory effort Cardio: Jugular venous distension: no JVD Rhythm: regular rhythm Heart sounds: S1 normal heart sound present and S2 normal heart sound present GI: Inspection: Yes normal to inspection Percussion: Yes normal to percussion Auscultation: normal bowel sounds : General: Yes no CVA tenderness Back/Spine/Pelvis: Back: no CVA tenderness Skin: General skin exam: no rashes or lesions noted Neuro: General: patient oriented x3 Extrem: Other: Left thumb and left index finger slightly ecchymosis in the distal the PIP General: Yes normal to inspection Course Course Course Narrative: Recommendation for digital block and reduction of the thumb however he says he would prefer doing this and orthopedics office does not want to wait here. I was already at bedside with supplies to do the thumb reduction and review x-ray is requesting that have a splint lately and does not want anything done here. He will call closely to orthopedics to follow-up. Risk of infection, chronic deformity and poor function reviewed with him if he does not have this reduced at this time he continues to adamantly decline. Given the involvement of the left index finger and thumb for this reason was placed in a volar splint. He is already on chronic oxycodone for chronic back pain. MDM - Extremity Injury (Upper) Medical Records Attestation: I reviewed the patient's medical records. Lab Data Attestation: I reviewed the patient's lab results. Imaging Data Left hand x-ray: Radiologist's impression: [address] [id number] ReportSigned Patient: Malick Kiser R#: [id number]: [id number]:[id number]/Sex: 75 / MADM Date: 01/12/21Loc: HO.EDAttending Dr: Ordering Physician: Generic ED Physician Date of Service: 01/12/21 Procedure(s): XR hand LT min 3V Accession Number(s): [id number] cc: Generic ED Physician~ EXAMINATION: XR HAND, LEFT CLINICAL INFORMATION: Left thumb pain status post fall. COMPARISON: None TECHNIQUE: PA, lateral, and oblique views of the left hand. FINDINGS: There is mild malalignment of the interphalangeal joint of the first digit. Mild distal interphalangeal joint degenerative changes are seen in the remainder the digits. A longitudinal linear lucency is seen in the middle phalanx of the second digit in the lateral projection. There is a possible intra-articular component extending to the proximal interphalangeal joint. The remainder of the digits appear intact. The carpal bones are normally aligned. The distal radius and ulna are intact. XR/XR hand LT min 3V IMPRESSION: 1. Mild subluxation of the first interphalangeal joint without definitive fracture. 2. Longitudinal linear lucency in the middle phalanx of the second digit is only seen on one image and could represent artifact, but a nondisplaced acute fracture cannot be excluded. Correlate with physical exam. Dictated By:JASON QUIJANO MDSigned By:<Electronically signed by JASON QUIJANO MD in [place]>01/12/[id number] DD/ 53TD/TT: Geophysical Prospector: LORNE Discharge Plan Discharge Clinical Impression: Closed dislocation of right thumb, Closed fracture of phalanx of index finger Patient Disposition: Home, Self-Care Instructions: Finger Fracture (ED), Finger Dislocation (ED) Additional Instructions: Leave splint in place and follow-up with orthopedics Return if any concerns or worsening symptoms Rest and, ice, elevate, compress Tylenol for pain discomfort Follow-up with Orthopedics as discussed Thank you Prescriptions: No Action metolazone 5 mg Tablet 5 mg PO SA@1000 RF: 0 oxycodone [OxyContin] 80 mg Tablet,Oral Only,Ext.Rel.12 Hr 80 mg PO Q12H RF: 0 furosemide 40 mg Tablet 80 mg PO BID RF: 0 oxycodone 15 mg Tablet 15 mg PO Q6H PRN (Reason: Breakthrough Pain) RF: 0 Eliquis 5 mg Tablet 5 mg PO BID RF: 0 potassium chloride 10 mEq Capsule, Extended Release 10 meq PO BID RF: 0 tamsulosin 0.4 mg Capsule 0.4 mg PO DAILY RF: 0 Referrals: Oralia Kaye MD [Physician] - 2 days Interventions: ED Discharge Assessment Last Done: 01/12/21 22:33 Discharge Date/Time: 01/12/21 22:35
--- NOTE | 2021-01-12 22:37 | PC.NURSE ---
VOLAR SPLINT APPLIED TO L HAND.
== END 2021-01-12 22:35 | disposition home or self-care (01) ==
PROVIDERS: Emergency Provider Internal Medicine
DX: S63.104A Unspecified dislocation of right thumb, initial encounter (principal); S62.600A Fracture of unspecified phalanx of right index finger, initial encounter for closed fracture; M79.642 Pain in left hand; W01.0XXA Fall on same level from slipping, tripping and stumbling without subsequent striking against object, initial encounter; Y93.9 Activity, unspecified; Y92.9 Unspecified place or not applicable; Y99.9 Unspecified external cause status; Z79.899 Other long term (current) drug therapy
CPT/HCPCS: 29130; 73130; 99284

== ENCOUNTER 2022-03-04 14:07 | Outpatient (REF) | payer MEDICARE, OTHER, SELFPAY ==
[2022-03-04 14:41] LABS: MANUAL DIFF FLAG NO
[2022-03-04 15:20] LABS: Basophils Percent Auto 0.2 % (0-2); Eosinophils Absolute Auto 0.3 X10*3/uL (0.0-0.4); Eosinophils Percent Auto 3.1 % (0-4); Hematocrit 31.5 % (42.0-52.0); Imm Gran Abs Auto 0.06 X10*3/uL (0.00-0.03); Imm Gran Pct Auto 0.7 % (0.0-0.4); Lymphocytes Absolute Auto 1.1 X10*3/uL (1.2-4.9); Lymphocytes Percent Auto 12.3 % (20-40); Mean Corpuscular HGB Conc 28.6 g/dl (31.0-36.0); Mean Corpuscular Hemoglobin 21.8 pg (27.0-33.0); Mean Corpuscular Volume 76.5 fL (80.0-98.0); Mean Platelet Volume 9.7 fL (9.4-12.4); Monocytes Absolute Auto 0.8 X10*3/uL (0.1-1.2); Monocytes Percent Auto 8.2 % (2-11); Neutrophils Absolute Auto 6.9 x10*3/uL (2.0-8.3); Neutrophils Percent Auto 75.5 % (45-73); Platelet Count 306 X10*3/uL (160-400); Red Blood Count 4.12 X10*6/uL (4.60-5.80); Red Cell Distribution Width 17.5 % (11.0-16.0); White Blood Count 9.1 X10*3/uL (4.8-10.8)
[2022-03-04 15:27] LABS: Estimated Average Glucose 203 mg/dL; Hemoglobin A1c % 8.7 %
[2022-03-04 15:50] LABS: Alanine Aminotransferase 29 U/L (0-40); Albumin Level 3.7 g/dL (3.5-5.0); Alkaline Phosphatase 72 U/L (39-117); Anion Gap 18 (12-20); Aspartate Amino Transferase 43 U/L (5-37); Bilirubin Total 0.3 mg/dL (0.0-1.0); Blood Urea Nitrogen 16 mg/dL (9-16); Calcium 8.4 mg/dL (8.4-10.2); Carbon Dioxide 32 mmol/L (22-29); Chloride 92 mmol/L (96-108); Cholesterol 162 mg/dL; Estimated Glomerular Filt Rate > 60; Glucose Random 201 mg/dL (60-115); HDL Cholesterol 37 mg/dL; LDL Cholesterol Calculated 91 mg/dl; Potassium 4.5 mmol/L (3.3-5.1); Sodium 137 mmol/L (135-145); Total Protein 6.7 g/dL (6.5-8.0); Triglycerides 173 mg/dL
== END 2022-03-04 14:08 | disposition home or self-care (01) ==
LOC: HO.LAB 14:07
PROVIDERS: PCP Family Medicine; Visit Provider Family Medicine
DX: E11.9 Type 2 diabetes mellitus without complications (principal); L03.119 Cellulitis of unspecified part of limb
CPT/HCPCS: 36415; 80053; 80061; 83036; 85025

== ENCOUNTER 2023-12-12 10:40 | Outpatient (REF) | payer MEDICARE, OTHER, SELFPAY ==
[2023-12-12 12:11] LABS: Amphetamine Screen Urine Not Detected (Not Detect); Barbiturates, Urine Not Detected (Not Detect); Benzodiazepines Screen Urine Not Detected (Not Detect); Cannabinoid Screen Urine Not Detected (Not Detect); Cocaine Screen Urine Not Detected (Not Detect); Opiate Screen Urine POSITIVE (Not Detect); Phencyclidine Screen Urine Not Detected (Not Detect)
[2023-12-12 12:13] LABS: Fentanyl, urine Not Detected (Not Detect)
== END 2023-12-12 10:41 | disposition home or self-care (01) ==
LOC: HO.LAB 10:40
PROVIDERS: Visit Provider Nurse Practitioner Adult Health
DX: Z79.891 Long term (current) use of opiate analgesic (principal)
CPT/HCPCS: 80307

== ENCOUNTER 2024-03-17 07:11 | Outpatient (REF) | payer MEDICARE, OTHER, SELFPAY ==
[2024-03-17 07:25] LABS: MANUAL DIFF FLAG NO
[2024-03-17 07:41] LABS: Basophils Percent Auto 0.4 % (0-2); Eosinophils Absolute Auto 0.4 X10*3/uL (0.0-0.4); Eosinophils Percent Auto 4.4 % (0-4); Hemoglobin 9.1 g/dl (14.0-18.0); Imm Gran Abs Auto 0.03 X10*3/uL (0.00-0.03); Imm Gran Pct Auto 0.3 % (0.0-0.4); Lymphocytes Absolute Auto 1.5 X10*3/uL (1.2-4.9); Lymphocytes Percent Auto 16.6 % (20-40); Mean Corpuscular HGB Conc 29.4 g/dl (31.0-36.0); Mean Corpuscular Hemoglobin 19.3 pg (27.0-33.0); Mean Corpuscular Volume 65.8 fL (80.0-98.0); Mean Platelet Volume 9.3 fL (9.4-12.4); Monocytes Absolute Auto 1.1 X10*3/uL (0.1-1.2); Monocytes Percent Auto 11.9 % (2-11); Neutrophils Absolute Auto 6.1 x10*3/uL (2.0-8.3); Neutrophils Percent Auto 66.4 % (45-73); Platelet Count 450 X10*3/uL (160-400); Red Blood Count 4.71 X10*6/uL (4.60-5.80); Red Cell Distribution Width 18.3 % (11.0-16.0); White Blood Count 9.1 X10*3/uL (4.8-10.8)
[2024-03-17 07:51] LABS: Estimated Average Glucose 111 mg/dL; Hemoglobin A1c % 5.5 % (<6.0)
[2024-03-17 08:03] LABS: Alanine Aminotransferase 13 U/L (0-40); Alkaline Phosphatase 107 U/L (39-117); Anion Gap 17 (12-20); Aspartate Amino Transferase 27 U/L (5-37); Bilirubin Total 0.6 mg/dL (0.0-1.0); Blood Urea Nitrogen 16 mg/dL (9-16); Calcium 9.7 mg/dL (8.4-10.2); Carbon Dioxide 35 mmol/L (22-29); Chloride 91 mmol/L (96-108); Estimated Glomerular Filt Rate > 60; Glucose Random 143 mg/dL (60-115); Potassium 3.3 mmol/L (3.3-5.1); Sodium 140 mmol/L (135-145); Total Protein 7.8 g/dL (6.5-8.0)
== END 2024-03-17 07:12 | disposition home or self-care (01) ==
LOC: HO.LAB 07:11
PROVIDERS: Visit Provider Nurse Practitioner Adult Health
DX: E11.9 Type 2 diabetes mellitus without complications (principal); R30.0 Dysuria
CPT/HCPCS: 36415; 80053; 83036; 85025